=== PATIENT | female | born 1950 | race Caucasian/White ===

== ENCOUNTER 2016-07-30 19:22 | Observation (INO) ==
[2016-07-30] MEDS ORDERED: Ipratropium/Albuterol Neb 3 ML IH ONE (19:51)
[2016-07-30 19:57] LABS: Basophils % 0.2 %; Eosinophils # 0.1 K/mcL (0.0-0.6); Eosinophils % 1.4 %; Hematocrit 44.1 % (35.3-44.9); Immature Granulocytes % 0.1 % (0-4); Lymphocytes # 1.3 K/mcL (0.6-4.6); Lymphocytes % 15.2 %; Mean Corpuscular HGB Conc 31.7 g/dL (31.6-35.5); Mean Corpuscular Volume 94.6 fL (83.0-100.0); Monocytes # 0.6 K/mcL (0.0-1.3); Monocytes % 7.6 %; Neutrophils # 6.3 K/mcL (1.6-8.9); Platelet Count 288 K/mcL (140-400); Red Blood Count 4.66 M/mcL (3.82-4.97); Red Cell Distribution Width 12.9 % (11.5-14.5); Segmented Neutrophils % 75.5 %
--- NOTE | 2016-07-30 19:58 | Emergency Department Note ---
Disposition Clinical Impression: Community acquired pneumonia COPD (chronic obstructive pulmonary disease) Qualifiers: COPD type: chronic bronchitis Chronic bronchitis type: simple Qualified Code(s) : J41.0 - Simple chronic bronchitis Disposition: Admitted As Inpatient General Adult HPI - General Chief complaint: ED Shortness of Breath/Dyspnea Stated complaint: CLIVE Time Seen by Provider: 07/30/16 19:31 Source: patient Limitations: no limitations Nursing Notes Reviewed: Yes Vital Signs Reviewed: Yes - History of Present Illness HPI Narrative: 3 week history of cough with a change in sputum that is now green. She does have a history of COPD. She is chronically on oxygen. She was seen in urgent care today and transferred here. She was given 1 DuoNeb. She has had subjective fevers she is at home. Pain Scale: 0 - Related Data Home Medications Medication Instructions Recorded Confirmed Budesonide/Formoterol 160/4.5 2 puff IH BIDR 05/12/15 07/30/16 [Symbicort 160/4.5] Clopidogrel [Plavix] 75 mg PO DAILY 05/12/15 07/30/16 Cyclobenzaprine [Flexeril] 10 mg PO TID PRN 05/12/15 07/31/16 Furosemide [Lasix] 40 mg PO Q48H 05/12/15 07/30/16 Albuterol Sulfate [Proair Hfa] 2 puff IH BID PRN 07/30/16 07/30/16 Previous Rx's Medication Instructions Recorded Nicotine Patch [Nicoderm] 21 mg TD DAILY PRN #30 patch.[email or web address] 05/14/15 Allergies Allergy/AdvReac Type Severity Reaction Status Date / Time Penicillins Allergy Anaphylaxis Verified 05/12/15 16:09 NSAIDS (Non-Steroidal AdvReac See Verified 05/12/15 16:09 Anti-Inflamma Comments Sulfa (Sulfonamide AdvReac See Verified 05/12/15 16:09 Antibiotics) Comments Past Medical History - Past Medical History Medical history: Reports: COPD, CVA Surgical history: Reports: cholecystectomy, other Psychiatric history: Reports: no psych history - Social History Smoking Status: Current every day smoker Smokeless Tobacco Status: No Alcohol use: Reports: none Drug use: Reports: none Physical Exam - General Limitations: no limitations General appearance: alert, in no apparent distress Course Course Narrative: 66-year-old female with a history of COPD presenting with a 3 week history of change in sputum and cough. She states her sputum is green color. She has had increased shortness of breath over the past week with today being so bad that she sought treatment. She was seen at urgent care given a DuoNeb and an unknown steroid. Patient also reports a sore throat. She does wear oxygen chronically. She has exertional dyspnea after only a few steps. SHe denies any fevers. We will give another to do on an work patient up for COPD exacerbation. This will include a chest x-ray. Patient chest x-ray showed a possible left lower lobe infiltrate. She does have rhonchi in this area. We will treat her for pneumonia at this time admit her. - Reevaluation(s) Reevaluation #1: After 3 DuoNeb's patient she is breathing slightly better. However she did still appears dyspneic. She is still taking. Her lung sounds have a faint wheeze with rhonchi in the left lower lobe. Will admit her for COPD exacerbation and possible left lower lobe pneumonia. Patient is agreeable to this. She received 25 Solu-Medrol while she was at urgent care today. Time: 21:38 - Consultations Consultation #1: Dr Corley accepted Pt in stable condition Time: 21:43 Vital Signs Temperature 0 F L 07/30/16 19:23 Pulse Rate 89 07/30/16 19:23 Respiratory Rate 20 07/30/16 19:23 Blood Pressure 139/57 07/30/16 19:23 O2 Sat by Pulse Oximetry 92 L 07/30/16 19:23 Temperature 97.6 F 07/31/16 03:43 Pulse Rate 70 07/31/16 03:43 Respiratory Rate 18 07/31/16 04:56 Blood Pressure 134/78 07/31/16 03:43 O2 Sat by Pulse Oximetry 97 07/31/16 04:56 Oxygen Delivery Oxygen Delivery Nasal Cannula Medical Decision Making - Lab Data Result diagrams: 07/31/16 00:39 07/31/16 00:39 Lab Results 07/30/16 07/30/16 Range/Units 19:40 19:40 WBC 8.4 (4.3-11.1) K/mcL RBC 4.66 (3.82-4.97) M/mcL Hgb 14.0 (11.5-15.4) g/dL Hct 44.1 (35.3-44.9) % MCV 94.6 (83.0-100.0) fL MCH 30.0 (28.0-33.3) pg MCHC 31.7 (31.6-35.5) g/dL RDW 12.9 (11.5-14.5) % Plt Count 288 (140-400) K/mcL MPV 9.0 L (9.4-12.4) fL Immature Gran % 0.1 (0-4) % Seg Neutrophils % 75.5 % Lymphocytes % 15.2 % Monocytes % 7.6 % Eosinophils % 1.4 % Basophils % 0.2 % Neutrophils # 6.3 (1.6-8.9) K/mcL Lymphocytes # 1.3 (0.6-4.6) K/mcL Monocytes # 0.6 (0.0-1.3) K/mcL Eosinophils # 0.1 (0.0-0.6) K/mcL Basophils # 0.0 (0.0-0.2) K/mcL Sodium 140 (136-145) mEq/L Potassium 4.3 (3.5-4.5) mEq/L Chloride 102 (98-109) mEq/L Carbon Dioxide 28 (19-29) mEq/L BUN 15 (7-20) mg/dL Creatinine 0.71 (0.57-1.11) mg/dL Est GFR ( Amer) > 60 (> 60) Est GFR (Non-Af Amer) > 60 (> 60) BUN/Creatinine Ratio 21 (6-26) Glucose 109 H (70-99) mg/dL Calculated Osmolality 291 (280-300) Calcium 9.2 (8.6-10.8) mg/dL Attestation Statement - Attestation Attestation: I, Diego Ballard MD, personally performed a history and physical exam of the patient and discussed their management with the resident. I reviewed the resident's note and agree with the documented findings, medical decision making , and plan of care. Patient is a 66-year-old female with history of COPD who presents to the emergency department with a complaint of increasing shortness of breath for the past 2 weeks. She was initially seen tonight at urgent care clinic and presented there with an O2 saturation of 85% on her portable oxygen. She received a DuoNeb there was referred here for further evaluation. Patient is on continuous oxygen at home. She is a smoker and continues to smoke about 1 pack per day. Over the past few weeks she has had increased cough with some thick green sputum production. She also admits to intermittent subjective fevers. No chest pain or palpitations. On examination patient is a well-developed well-nourished elderly female in no acute distress. She is alert and oriented 3. There is no cyanosis or diaphoresis. Breath sounds are decreased bilaterally with diffuse tight bilateral inspiratory and expiratory wheezes. Heart regular rate and rhythm with occasional ectopy. Abdomen soft and nontender with normal bowel sounds. EKG shows a normal sinus rhythm with occasional PAC. No voltage in precordial leads. No significant change from prior EKG dated 05/12/15. Labs reviewed and unremarkable. Chest x-ray showed linear opacity in left base likely atelectasis but cannot exclude pneumonia. The hospitalist, Dr. Hills, was consulted and accepted patient for admission for exacerbation of COPD.
[2016-07-30 20:10] LABS: BUN/Creatinine Ratio 21 (6-26); Blood Urea Nitrogen 15 mg/dL (7-20); Calcium 9.2 mg/dL (8.6-10.8); Carbon Dioxide 28 mEq/L (19-29); Chloride 102 mEq/L (98-109); Glucose 109 mg/dL (70-99); Osmolality,Calculated 291 (280-300); Potassium 4.3 mEq/L (3.5-4.5); Sodium 140 mEq/L (136-145); eGFR For African Americans > 60 (> 60); eGFR For Non-African Americans > 60 (> 60)
[2016-07-30] MEDS ORDERED: Azithromycin 500 MG in D5% in Water 250 ML IVPB ONE ×2 (21:34→21:37)
--- NOTE | 2016-07-30 22:56 | Internal Med History&Physical ---
Date of Encounter: 07/31/16 Time of Encounter: 22:30 Assessment and Plan (1) Acute and chronic respiratory failure with hypoxia Current visit: Yes Status: Acute Likely secondary to COPD exacerbation. Less likely pneumonia. Afebrile, no leukocytosis. CXR showed linear opacity, likely atelectasis, possible superimposed pneumonia. Noted green sputum, will order culture and gram stain. Patient received Azithromycin and Rocephin in the ED. Currently stable on 2 lpm O2, titrate as needed. CPAP at night. Continue duoneb QIAD, Albuterol Q4H Continue symbicort Continue IV steroids 40mg Q8H. Start Levaquin 750mg IV daily for 5 days. (2) Acute exacerbation of chronic obstructive airways disease Current visit: No Status: Acute See above plan. (3) Chest pain Current visit: Yes Status: Acute Nonanginal chest pain. Likely pleuritic secondary to COPD exacerbation. Fleeting left substernal pain. No precepitation or relieving factors. Qualifiers: Chest pain type: unspecified Qualified Code(s): R07.9 - Chest pain, unspecified (4) Upper respiratory infection Current visit: Yes Status: Acute Likely viral URI, afebrile, no leukocytosis. Patient states burning throat, lymph nodes tender to palpation. Not affect PO intake. Continue to observe. Qualifiers: URI type: unspecified URI Qualified Code(s): J06.9 - Acute upper respiratory infection, unspecified (5) GERD (gastroesophageal reflux disease) Current visit: Yes Status: Chronic Patient states frequent heartburn. Will start pepcid. Qualifiers: Esophagitis presence: esophagitis presence not specified Qualified Code(s) : K21.9 - Gastro-esophageal reflux disease without esophagitis (6) CHF (congestive heart failure) Current visit: No Status: Suspected Reportedly. Patient states she had an echo 3-4 years ago. Previous note mentions Echo on 12/04/11 showing EF 65% with no diastolic dysfunction. Will monitor for signs of acute CHF. Qualifiers: Congestive heart failure type: unspecified congestive heart failure type Congestive heart failure chronicity: chronic Qualified Code(s): I50.9 - Heart failure, unspecified (7) Hx-TIA (transient ischemic attack) Current visit: No Status: Acute TIA in 2011. Unable to tolerate ASA. Continue Plavix. Mild persistent R sided weakness. (8) Obstructive sleep apnea Current visit: No Status: Chronic Currently uses CPAP machine nightly with setting of 4mmHg and 2 lpm O2. (9) Chronic back pain Current visit: No Status: Chronic Continue home flexeril. Qualifiers: Back pain location: back pain in unspecified location Back pain laterality : unspecified Qualified Code(s): M54.9 - Dorsalgia, unspecified; G89.29 - Other chronic pain (10) Tobacco abuse Current visit: No Status: Chronic Nicoderm patch. Tobacco cessation counseling. (11) DVT prophylaxis Current visit: No Status: Acute Heparin SQ Internal Medicine - H&P: HPI Chief complaint: dyspnea Admitted From: Emergency Dept Plans for Post Hospital Care: Home History of present illness: Ms. Garcia is a 66 year old female that presented to the ED from urgentcare for shortness of breath for the past week. Pertinent history of COPD, on 2-3L of O2 at home, CPAP for MARIELY, GERD, CVA, CHF, chronic diarrhea. Patient noted worsening shortness of breath today with occasional fleeting left substernal chest pain, pain not associated with inspirations or cough. Patient does note 2 weeks of sputum production that started as clear and is now green. Patient states she has been fatigued and weak for the past week. Patient admits to smoking approx 1ppd, stated closer to 2ppd. Patient found to have a O2 saturation of 85% at urgentcare, currently 92% on 2 lpm via NC. Patient also notes neck pain for the past couple weeks and a sorethroat, however this has not affect PO intake. Past Med Surg Social Fam HX - Past Medical History Medical history: CHF, COPD, CVA, other (magular degeneration) Psychiatric history: no psych history - Past Surgical History Surgical History: cholecystectomy, other - Social History Smoking Status: Current every day smoker Smokeless Tobacco Status: No Alcohol use: none Drug use: none - Family History Mother Living Status: Hx Family Cardiac Disorders: Yes Hx Family Endocrine Disorder: Yes Father Hx Family Cardiac Disorders: Yes (CHF, HTN) Hx Family GI Disorders: Yes (diverticulitis) Hx Family Endocrine Disorder: Yes (DM) Hx Family Musculoskeletal Disorders: Yes (arthritis) Internal Medicine - H&P: Meds Budesonide/Formoterol 160/4.5 [Symbicort 160/4.5] 2 puff IH BIDR 05/12/15 [ History] Clopidogrel [Plavix] 75 mg PO DAILY 05/12/15 [History] Cyclobenzaprine [Flexeril] 10 mg PO TID PRN 05/12/15 [History] Furosemide [Lasix] 40 mg PO Q48H 05/12/15 [History] Nicotine Patch [Nicoderm] 21 mg TD DAILY PRN #30 patch.td24 05/14/15 [Rx] Albuterol Sulfate [Proair Hfa] 2 puff IH BID PRN 07/30/16 [History] Allergies Penicillins Allergy (Verified 05/12/15 16:09) Anaphylaxis NSAIDS (Non-Steroidal Anti-Inflamma Adverse Reaction (Verified 05/12/15 16:09) See Comments Sick Sulfa (Sulfonamide Antibiotics) Adverse Reaction (Verified 05/12/15 16:09) See Comments "deathly sick" All Systems PM: A 10-system review of systems was performed and is negative for pertinent findings except as documented above in the HPI. - Constitutional Constitutional: chills, fatigue, no fever(s) (no documented fevers) - EENT Eyes: blurry vision (hx of macular degeneration), no change in vision Nose, mouth and throat: neck pain, sore throat, no dysphagia, no tongue swelling - Cardiovascular Cardiovascular ROS IM: chest pain, dyspnea, dyspnea on exertion, lightheadedness , no syncope - Respiratory Respiratory: cough, dyspnea, dyspnea on exertion, excessive phlegm production, change in phlegm color - Gastrointestinal Gastrointestinal: diarrhea, heartburn, no abdominal pain, no dysphagia, no nausea, no vomiting - Genitourinary Genitourinary: no dysuria - Musculoskeletal Musculoskeletal ROS IM: neck pain (bilateral tenderness) - Neurological Neurological ROS: dizziness, weakness, no confusion, no focal weakness - Endocrine Endocrine IM: cold intolerance, heat intolerance - Constitutional Vitals: Temp Pulse Resp BP Pulse Ox 0 F L 82 18 112/56 92 L 07/30/16 21:07 07/30/16 22:35 07/30/16 22:35 07/30/16 22:35 07/30/16 22:35 General appearance: Present: cooperative, A&O X 3, pleasant, no acute distress, answers questions appropriately - Head Head exam: Present: atraumatic, normocephalic - Eye Eye exam: Present: EOMI, conjuntiva pink, sclera anicteric - ENT ENT exam: Present: mucous membranes moist, normal oropharynx (no exudate or erythema noted) - Neck Neck exam general surgery: Present: full ROM, tenderness (tender to palpation along anteriolateral cervical chains, unable to fully palpate for lymphadenopathy due to tenderness.), supple, trachea midline - Respiratory Respiratory exam: Present: chest wall tenderness (sternal tenderness about the level of the 4th rib.), decreased breath sounds, wheezes (greater on the L>R). Absent: accessory muscle use, rales, rhonchi - Cardiovascular Cardiovascular exam: Present: RRR, +S1, +S2. Absent: diastolic murmur, gallop, rubs, systolic murmur - GI/Abdominal GI/Abdominal exam: Present: normal bowel sounds, soft, no peritoneal signs. Absent: distended, tenderness - Extremities Exam Extremities exam: Present: warm. Absent: calf tenderness, cyanotic, pedal edema , tenderness - Neurological Exam Neurological exam: Present: alert, oriented X3, no focal deficits. Absent: facial droop, speech deficit Additional comments: Right UE and LE strength 4+/5, Left sided UE and LE 5+/5. - Skin Skin exam: Present: dry, intact Internal Med - H&P Results - Labs CBC & Chem 7: 07/31/16 00:39 07/31/16 00:39 Labs: Short CBC 07/30/16 Range/Units 19:40 WBC 8.4 (4.3-11.1) K/mcL Hgb 14.0 (11.5-15.4) g/dL Hct 44.1 (35.3-44.9) % Plt Count 288 (140-400) K/mcL Neutrophils # 6.3 (1.6-8.9) K/mcL BMP 07/30/16 19:40 Sodium 140 Potassium 4.3 Chloride 102 Carbon Dioxide 28 BUN 15 Creatinine 0.71 Glucose 109 H Calcium 9.2 - Impressions ITS Impressions Chest X-Ray 07/30/16 19:50 IMPRESSION: Minimal linear opacity in the left lung base likely reflects atelectasis. Superimposed pneumonia considered less likely clear D/ / Simone Valdez MD / Simone Valdez MD Interpreting Provider: Simone Valdez MD
[2016-07-31] MEDS ORDERED: Acetaminophen 325 MG TABLET PO PRN (00:05)
[2016-07-31] MEDS ORDERED: Ondansetron ODT 4 MG TAB.RAPDIS SL PRN (00:05)
[2016-07-31] MEDS ORDERED: Nicotine 21 MG PATCH.TD24 TD PRN (00:17)
[2016-07-31] MEDS ORDERED: Ipratropium/Albuterol Neb 3 ML IH PRN (00:20)
[2016-07-31 00:59] LABS: Basophils % 0.1 %; Hematocrit 42.2 % (35.3-44.9); Hemoglobin 13.2 g/dL (11.5-15.4); Immature Granulocytes % 0.4 % (0-4); Lymphocytes # 0.4 K/mcL (0.6-4.6); Lymphocytes % 3.6 %; Mean Corpuscular HGB Conc 31.3 g/dL (31.6-35.5); Mean Corpuscular Hemoglobin 29.9 pg (28.0-33.3); Mean Corpuscular Volume 95.5 fL (83.0-100.0); Mean Platelet Volume 9.1 fL (9.4-12.4); Monocytes % 0.3 %; Platelet Count 269 K/mcL (140-400); Red Blood Count 4.42 M/mcL (3.82-4.97); Red Cell Distribution Width 12.8 % (11.5-14.5); Segmented Neutrophils % 95.6 %
[2016-07-31 01:04] LABS: BUN/Creatinine Ratio 19 (6-26); Blood Urea Nitrogen 15 mg/dL (7-20); Calcium 8.8 mg/dL (8.6-10.8); Carbon Dioxide 24 mEq/L (19-29); Chloride 101 mEq/L (98-109); Glucose 274 mg/dL (70-99); Osmolality,Calculated 297 (280-300); Potassium 4.2 mEq/L (3.5-4.5); Sodium 138 mEq/L (136-145); eGFR For African Americans > 60 (> 60); eGFR For Non-African Americans > 60 (> 60)
[2016-07-31] MEDS ORDERED: Albuterol 2.5 MG/3 ML NEBULIZER IH PRN (02:31)
[2016-07-31] MEDS: Ipratropium/Albuterol Neb 3 ML IH SCH ×4 (04:56→22:18)
[2016-07-31] MEDS: *HR* Heparin 5,000 UNIT/ML VIAL SQ SCH ×2 (05:43→17:54)
[2016-07-31] MEDS ORDERED: Levofloxacin 750 MG/150 ML 750 MG/150 ML BAG IVPB SCH (09:00)
[2016-07-31] MEDS: MethylPREDNISolone 40 MG/ML VIAL IVP SCH ×2 (09:44→17:54)
[2016-07-31] MEDS: Famotidine 20 MG TABLET PO SCH ×2 (09:44→20:25)
[2016-07-31] MEDS: Budesonide/Formoterol 160/4.5 MDI IH SCH ×2 (11:37→22:18)
--- NOTE | 2016-07-31 14:24 | Internal Med Progress Note ---
Date of Encounter: 07/31/16 Time of Encounter: 07:45 - Assessment and plan (1) Acute and chronic respiratory failure with hypoxia Current Visit: Yes Status: Acute Assessment and plan: Improving. Continue current management with O2 supplementation, IV steroids, antibiotics. (2) Chest pain Current Visit: Yes Status: Acute Assessment and plan: Improved. Pleuritic in nature. Negative troponins. Qualifiers: Chest pain type: pleurodynia Qualified Code(s): R07.81 - Pleurodynia (3) Upper respiratory infection Current Visit: Yes Status: Acute Assessment and plan: Receiving levofloxacin. Qualifiers: URI type: unspecified URI Qualified Code(s): J06.9 - Acute upper respiratory infection, unspecified (4) Acute exacerbation of chronic obstructive airways disease Current Visit: No Status: Acute Assessment and plan: Management as above with IV steroids, O2 supplementation and nebs. (5) CHF (congestive heart failure) Current Visit: No Status: Suspected Assessment and plan: Patient does not have any signs of acute heart failure. Qualifiers: Congestive heart failure type: unspecified congestive heart failure type Congestive heart failure chronicity: chronic Qualified Code(s): I50.9 - Heart failure, unspecified (6) DVT prophylaxis Current Visit: No Status: Acute Assessment and plan: On subcutaneous heparin - Constitutional Vitals: Temp Pulse Resp BP Pulse Ox 97.2 F L 68 20 102/63 90 L 07/31/16 11:02 07/31/16 11:02 07/31/16 11:38 07/31/16 11:02 07/31/16 11:38 General appearance: Present: cooperative, A&O X 3, pleasant, no acute distress, answers questions appropriately - Respiratory Respiratory exam: Present: decreased breath sounds (diminished bilaterally), prolonged expiratory phase, wheezes. Absent: accessory muscle use, rales, rhonchi - Cardiovascular Cardiovascular exam: Present: RRR, +S1, +S2. Absent: diastolic murmur, gallop, rubs, systolic murmur - GI/Abdominal GI/Abdominal exam: Present: normal bowel sounds, soft, no peritoneal signs. Absent: distended, tenderness - Extremities Exam Extremities exam: Present: warm, radial pulses palpable and symetrical. Absent : calf tenderness, cyanotic, pedal edema Internal Medicine: Result - Labs CBC & Chem 7: 07/31/16 00:39 07/31/16 00:39 Labs: Short CBC 07/31/16 Range/Units 00:39 WBC 10.5 (4.3-11.1) K/mcL Hgb 13.2 (11.5-15.4) g/dL Hct 42.2 (35.3-44.9) % Plt Count 269 (140-400) K/mcL Neutrophils # 10.0 H (1.6-8.9) K/mcL BMP 07/31/16 00:39 Sodium 138 Potassium 4.2 Chloride 101 Carbon Dioxide 24 BUN 15 Creatinine 0.78 Glucose 274 H Calcium 8.8 Cardiac Enzymes 07/31/16 Range/Units 00:39 Troponin I 0.01 (0-0.03) ng/mL Consult Discharge Plan - Plan Referrals: Kailey Alvarez MD [Primary Care Provider] - - Attending Attestation This document has been at least partially created by [employer] recognition technology by Dr. Brown. Errors in grammar, wording or other phrases may exist. If errors are found after the documentation is signed, they will be addressed individually in the addendum section of this document when appropriate. Medical Decision Making - MDM Narrative Medical decision making narrative: Moderate risk for complications - Medical Records Medical records reviewed: Yes I reviewed the patient's medical records. - Lab Data Lab results reviewed: Yes I reviewed the patient's lab results. Result diagrams: 07/31/16 00:39 07/31/16 00:39 Lab Results 07/31/16 07/31/16 07/31/16 Range/Units 00:39 00:39 00:39 WBC 10.5 (4.3-11.1) K/mcL RBC 4.42 (3.82-4.97) M/mcL Hgb 13.2 (11.5-15.4) g/dL Hct 42.2 (35.3-44.9) % MCV 95.5 (83.0-100.0) fL MCH 29.9 (28.0-33.3) pg MCHC 31.3 L (31.6-35.5) g/dL RDW 12.8 (11.5-14.5) % Plt Count 269 (140-400) K/mcL MPV 9.1 L (9.4-12.4) fL Immature Gran % 0.4 (0-4) % Seg Neutrophils % 95.6 % Lymphocytes % 3.6 % Monocytes % 0.3 % Eosinophils % 0.0 % Basophils % 0.1 % Neutrophils # 10.0 H (1.6-8.9) K/mcL Lymphocytes # 0.4 L (0.6-4.6) K/mcL Monocytes # 0.0 (0.0-1.3) K/mcL Eosinophils # 0.0 (0.0-0.6) K/mcL Basophils # 0.0 (0.0-0.2) K/mcL Sodium 138 (136-145) mEq/L Potassium 4.2 (3.5-4.5) mEq/L Chloride 101 (98-109) mEq/L Carbon Dioxide 24 (19-29) mEq/L BUN 15 (7-20) mg/dL Creatinine 0.78 (0.57-1.11) mg/dL Est GFR ( Amer) > 60 (> 60) Est GFR (Non-Af Amer) > 60 (> 60) BUN/Creatinine Ratio 19 (6-26) Glucose 274 H (70-99) mg/dL Calculated Osmolality 297 (280-300) Calcium 8.8 (8.6-10.8) mg/dL Troponin I 0.01 (0-0.03) ng/mL
[2016-08-01] MEDS: MethylPREDNISolone 40 MG/ML VIAL IVP SCH (01:03)
[2016-08-01] MEDS: Ipratropium/Albuterol Neb 3 ML IH SCH (04:28)
[2016-08-01] MEDS: *HR* Heparin 5,000 UNIT/ML VIAL SQ SCH (04:55)
[2016-08-01 06:52] VITALS: BP 111/69
--- NOTE | 2016-08-01 08:36 | Discharge Summary ---
Date of Encounter: 08/01/16 Time of Encounter: 08:32 - Discharge Diagnosis (1) Acute and chronic respiratory failure with hypoxia Priority: Primary Status: Acute (2) Chest pain Priority: Secondary Status: Acute Qualifiers: Chest pain type: pleurodynia Qualified Code(s): R07.81 - Pleurodynia (3) Upper respiratory infection Priority: Secondary Status: Acute Qualifiers: URI type: unspecified URI Qualified Code(s): J06.9 - Acute upper respiratory infection, unspecified (4) Acute exacerbation of chronic obstructive airways disease Priority: Secondary Status: Acute (5) CHF (congestive heart failure) Priority: Secondary Status: Suspected Qualifiers: Congestive heart failure type: unspecified congestive heart failure type Congestive heart failure chronicity: chronic Qualified Code(s): I50.9 - Heart failure, unspecified (6) DVT prophylaxis Priority: Secondary Status: Acute - Discharge Medications Prescriptions: Levofloxacin 750 mg PO DAILY #10 tablet PredniSONE 10 mg PO DAILY 8 Days Home Medications: Budesonide/Formoterol 160/4.5 [Symbicort 160/4.5] 2 puff IH BIDR 05/12/15 [ History] Clopidogrel [Plavix] 75 mg PO DAILY 05/12/15 [History] Cyclobenzaprine [Flexeril] 10 mg PO TID PRN 05/12/15 [History] Furosemide [Lasix] 40 mg PO BID PRN 05/12/15 [History] Albuterol Sulfate [Proair Hfa] 2 puff IH BID PRN 07/30/16 [History] Gabapentin [Neurontin] 300 mg PO TID 07/31/16 [History] Levofloxacin 750 mg PO DAILY #10 tablet 08/01/16 [Rx] PredniSONE 10 mg PO DAILY 8 Days 08/01/16 [Rx] Allergies/Adverse Reactions: Allergies Penicillins Allergy (Verified 05/12/15 16:09) Anaphylaxis metronidazole [From Flagyl] Adverse Reaction (Verified 07/31/16 12:19) Vomiting naproxen Adverse Reaction (Verified 07/31/16 12:19) Vomiting NSAIDS (Non-Steroidal Anti-Inflamma Adverse Reaction (Verified 07/31/16 12:19) Vomiting roflumilast [From Daliresp] Adverse Reaction (Verified 07/31/16 12:19) Vomiting Sulfa (Sulfonamide Antibiotics) Adverse Reaction (Verified 07/31/16 12:19) Vomiting Date of admission: 07/30/16 22:34 Primary care physician: Kailey Alvarez Discharging clinician: Winston Brown Anticipated date of discharge: 08/01/16 - Patient Status Disposition: Home, Self-Care Condition: Good Functional capacity at discharge: independent ambulation Overall status at discharge: patient is progressing back to baseline - Discharge Instructions Instructions: Chronic Obstructive Pulmonary Disease (DC) Follow Up With: Kailey Alvarez MD [Primary Care Provider] - (In one week) - Diet and Activity Activity: increase activity as tolerated, wear oxygen at all times Diet: diabetic diet, low fat, low cholesterol, low salt diet Hospital course: Ms. Garcia is a 66 year old female with history of chronic respiratory failure, coronary artery disease, diabetes mellitus type 2 and COPD was observed in the hospital after presenting with shortness of breath. She was treated with acute on chronic respiratory failure and acute exacerbation of COPD. She received intravenous steroids, antibiotics. She also received nebulizer treatments with bronchodilators. She did have some pleuritic chest pain related to coughing. Her troponins were negative. She has clinically improved and is now feeling much better and well enough to go home. She is clinically stable for discharge and will be discharged on a steroid taper antibiotic regimen. She will follow- up with her primary care provider for further management of her chronic medical conditions. - Time Spent with Patient Total time spent providing and/or coordinating discharge services: Less than 30 minutes (25 min) - Constitutional Vitals: Temp Pulse Resp BP Pulse Ox 97.9 F 94 16 111/69 96 08/01/16 06:48 08/01/16 06:48 08/01/16 06:48 08/01/16 06:48 08/01/16 06:48 General appearance: Present: cooperative, A&O X 3, pleasant, no acute distress, answers questions appropriately - Respiratory Respiratory exam: Present: decreased breath sounds (at bases), prolonged expiratory phase. Absent: accessory muscle use, rales, rhonchi, wheezes - GI/Abdominal GI/Abdominal exam: Present: normal bowel sounds, soft, no peritoneal signs. Absent: distended, tenderness - Extremities Exam Extremities exam: Present: warm, radial pulses palpable and symetrical. Absent : calf tenderness, cyanotic, pedal edema - Attending Attestation This document has been at least partially created by [employer] recognition technology by Dr. Brown. Errors in grammar, wording or other phrases may exist. If errors are found after the documentation is signed, they will be addressed individually in the addendum section of this document when appropriate.
--- NOTE | 2016-08-01 13:40 | Electrocardiograph Report ---
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
== END 2016-08-01 10:16 | disposition home or self-care (01) ==
LOC: EMEROO 19:22 → 3BNU 19:22 → SUATTDRO 22:34 → 3BNU 22:56
PROVIDERS: ADMIT Internal Medicine; ATTEND Internal Medicine

== ENCOUNTER 2017-10-02 12:21 | Observation (INO) ==
[2017-10-02] MEDS ORDERED: methylPREDNISolone 125 MG/2 ML VIAL IVP ONE (12:29)
[2017-10-02] MEDS ORDERED: Ipratropium/Albuterol Neb 3 ML IH ONE (12:29)
[2017-10-02] MEDS ORDERED: Aspirin 81 MG TAB.CHEW PO ONE (12:30)
--- NOTE | 2017-10-02 12:34 | Emergency Department Note ---
Disposition Clinical Impression: Chest pain Qualifiers: Chest pain type: unspecified Qualified Code(s): R07.9 - Chest pain, unspecified COPD (chronic obstructive pulmonary disease) Qualifiers: COPD type: unspecified COPD Qualified Code(s): J44.9 - Chronic obstructive pulmonary disease, unspecified Disposition: Admitted As Inpatient Condition: Fair Time of Disposition: 14:04 General Adult HPI - General Chief complaint: ED Chest Pain Stated complaint: chest pain Time Seen by Provider: 10/02/17 12:25 Source: patient Mode of arrival: ambulatory Limitations: no limitations Nursing Notes Reviewed: Yes Vital Signs Reviewed: Yes - History of Present Illness HPI Narrative: 67 year old female with a history of COPD, CHF presents for evaluation of cough congestion and chest pain. Patient states interim onsets but over the past 2 weeks but is worsened acutely. Patient reports intermittent chest pressure over this timeframe. States that it comes and goes. No aggravating or alleviating symptoms. Patient denies history of heart attacks. Patient reports a cough. No notable fevers. Patient does states she is feeling short of breath. Patient was seen by her primary care doctor for further cardiac evaluation. Patient does have baseline oxygen requiring 2 L. Pain Scale: 7 - Related Data Home Medications Medication Instructions Recorded Confirmed Budesonide/Formoterol 160/4.5 2 puff IH BIDR 05/12/15 10/02/17 [Symbicort 160/4.5] Clopidogrel [Plavix] 75 mg PO DAILY 05/12/15 10/02/17 Cyclobenzaprine [Flexeril] 10 mg PO TID PRN 05/12/15 10/02/17 Furosemide [Lasix] 40 mg PO BID PRN 05/12/15 10/02/17 Albuterol Sulfate [Proair Hfa] 2 puff IH BID PRN 07/30/16 10/02/17 Gabapentin [Neurontin] 300 mg PO TID 07/31/16 10/02/17 Allergies Allergy/AdvReac Type Severity Reaction Status Date / Time Penicillins Allergy Anaphylaxis Verified 05/12/15 16:09 metronidazole [From Flagyl] AdvReac Vomiting Verified 07/31/16 12:19 naproxen AdvReac Vomiting Verified 07/31/16 12:19 NSAIDS (Non-Steroidal AdvReac Vomiting Verified 07/31/16 12:19 Anti-Inflamma roflumilast [From Daliresp] AdvReac Vomiting Verified 07/31/16 12:19 Sulfa (Sulfonamide AdvReac Vomiting Verified 07/31/16 12:19 Antibiotics) All systems ED: reviewed and negative except as stated. Constitutional: Denies: fever Cardiovascular: Reports: chest pain Respiratory: Reports: cough, dyspnea Gastrointestinal: Denies: abdominal pain, nausea, vomiting Past Medical History - Past Medical History Source: patient Medical history: Reports: COPD, CVA Surgical history: Reports: cholecystectomy, other Psychiatric history: Reports: no psych history - Social History Smoking Status: Current every day smoker Smokeless Tobacco Status: No Alcohol use: Reports: none Drug use: Reports: none Physical Exam - General Limitations: no limitations General appearance: alert, in no apparent distress - Head Head exam: atraumatic, normocephalic, normal inspection - Eye Eye exam: Present: normal appearance - ENT ENT exam: normal exam - Neck Neck exam: Present: normal inspection - Chest Chest inspection: Present: normal inspection, symmetric chest wall rise - Respiratory Respiratory exam: Present: wheezes (Prolonged inspiratory expiratory wheezes throughout), accessory muscle use, prolonged expiratory phase - Cardiovascular Cardiovascular exam: Present: regular rate, normal rhythm. Absent: systolic murmur - Abdominal Exam Abdominal exam: Present: soft - Extremities Exam Extremities exam: Present: normal inspection - Expanded Lower Extremity Exam Neurovascular/Tendon exam: Present: normal capillary refill - Neurological Exam Neurological exam: Present: alert - Skin Skin exam: Present: warm, dry, intact, normal color Course - Reevaluation(s) Reevaluation #1: Patient is resting comfortably. Time: 15:39 Vital Signs Temperature 98.2 F 10/02/17 12:24 Pulse Rate 67 10/02/17 12:24 Respiratory Rate 16 10/02/17 12:24 Blood Pressure 138/79 10/02/17 12:24 O2 Sat by Pulse Oximetry 93 10/02/17 12:24 Temperature 98.2 F 10/02/17 12:24 Pulse Rate 79 10/02/17 15:09 Respiratory Rate 17 10/02/17 15:09 Blood Pressure 138/77 10/02/17 15:09 O2 Sat by Pulse Oximetry 97 10/02/17 15:09 Oxygen Delivery Oxygen Delivery Nasal Cannula Medical Decision Making - MDM Narrative Medical decision making narrative: Patient presents with shortness of breath and chest pain. Patient has have a history of COPD. Patient's chest pain does sound anginal in nature. Patient's breathing did appear labored initially. Patient was treated with triple nebs as well as steroids. Patient has had a change in sputum production and did prompt antibiotic coverage for likely COPD exacerbation. However it is difficult to discern whether her breathing is related to her chest pain. Patient has not had a formal cardiopulmonary evaluation. Patient will be admitted for chest pain as well as a COPD exacerbation. Patient had a negative influenza screen. Patient chest pain has improved with serial nitroglycerin. - Lab Data Lab results reviewed: Yes I reviewed the patient's lab results. Result diagrams: 10/02/17 13:05 10/02/17 13:05 Lab Results 10/02/17 10/02/17 10/02/17 Range/Units 13:05 13:05 13:05 WBC 7.5 (4.3-11.1) K/mcL RBC 4.45 (3.82-4.97) M/mcL Hgb 13.5 (11.5-15.4) g/dL Hct 42.1 (35.3-44.9) % MCV 94.6 (83.0-100.0) fL MCH 30.3 (28.0-33.3) pg MCHC 32.1 (31.6-35.5) g/dL RDW 12.8 (11.5-14.5) % Plt Count 211 (140-400) K/mcL MPV 8.9 L (9.4-12.4) fL Immature Gran % 0.4 (0-4) % Seg Neutrophils % 68.8 % Lymphocytes % 22.5 % Monocytes % 6.6 % Eosinophils % 1.3 % Basophils % 0.4 % Neutrophils # 5.2 (1.6-8.9) K/mcL Lymphocytes # 1.7 (0.6-4.6) K/mcL Monocytes # 0.5 (0.0-1.3) K/mcL Eosinophils # 0.1 (0.0-0.6) K/mcL Basophils # 0.0 (0.0-0.2) K/mcL D-Dimer (0-500) ng/mLFEU VBG pH (7.32-7.42) pH Units VBG pCO2 (41-51) mmHg VBG pO2 (25-50) mmHg VBG HCO3 (21-27) mEq/L Sodium 139 (136-145) mEq/L Potassium 3.8 (3.5-5.1) mEq/L Chloride 104 (98-107) mEq/L Carbon Dioxide 27 (23-29) mEq/L BUN 15 (8-23) mg/dL Creatinine 0.51 L (0.60-1.20) mg/dL Est GFR ( Amer) > 60 (> 60) Est GFR (Non-Af Amer) > 60 (> 60) BUN/Creatinine Ratio 29 H (6-26) Glucose 101 (70-105) mg/dL Calculated Osmolality 289 (280-300) Lactic Acid 0.6 (0.5-2.2) mmol/L Calcium 8.8 (8.6-10.3) mg/dL Troponin I < 0.03 (< 0.04) ng/mL B-Natriuretic Peptide (Less than 100) pg/mL 10/02/17 10/02/17 10/02/17 Range/Units 13:05 13:08 13:26 WBC (4.3-11.1) K/mcL RBC (3.82-4.97) M/mcL Hgb (11.5-15.4) g/dL Hct (35.3-44.9) % MCV (83.0-100.0) fL MCH (28.0-33.3) pg MCHC (31.6-35.5) g/dL RDW (11.5-14.5) % Plt Count (140-400) K/mcL MPV (9.4-12.4) fL Immature Gran % (0-4) % Seg Neutrophils % % Lymphocytes % % Monocytes % % Eosinophils % % Basophils % % Neutrophils # (1.6-8.9) K/mcL Lymphocytes # (0.6-4.6) K/mcL Monocytes # (0.0-1.3) K/mcL Eosinophils # (0.0-0.6) K/mcL Basophils # (0.0-0.2) K/mcL D-Dimer 287 (0-500) ng/mLFEU VBG pH 7.41 (7.32-7.42) pH Units VBG pCO2 48 (41-51) mmHg VBG pO2 134 H (25-50) mmHg VBG HCO3 30 H (21-27) mEq/L Sodium (136-145) mEq/L Potassium (3.5-5.1) mEq/L Chloride (98-107) mEq/L Carbon Dioxide (23-29) mEq/L BUN (8-23) mg/dL Creatinine (0.60-1.20) mg/dL Est GFR ( Amer) (> 60) Est GFR (Non-Af Amer) (> 60) BUN/Creatinine Ratio (6-26) Glucose (70-105) mg/dL Calculated Osmolality (280-300) Lactic Acid (0.5-2.2) mmol/L Calcium (8.6-10.3) mg/dL Troponin I (< 0.04) ng/mL B-Natriuretic Peptide 46 (Less than 100) pg/mL 10/02/17 Range/Units 13:43 WBC (4.3-11.1) K/mcL RBC (3.82-4.97) M/mcL Hgb (11.5-15.4) g/dL Hct (35.3-44.9) % MCV (83.0-100.0) fL MCH (28.0-33.3) pg MCHC (31.6-35.5) g/dL RDW (11.5-14.5) % Plt Count (140-400) K/mcL MPV (9.4-12.4) fL Immature Gran % (0-4) % Seg Neutrophils % % Lymphocytes % % Monocytes % % Eosinophils % % Basophils % % Neutrophils # (1.6-8.9) K/mcL Lymphocytes # (0.6-4.6) K/mcL Monocytes # (0.0-1.3) K/mcL Eosinophils # (0.0-0.6) K/mcL Basophils # (0.0-0.2) K/mcL D-Dimer (0-500) ng/mLFEU VBG pH 7.47 H (7.32-7.42) pH Units VBG pCO2 37 L (41-51) mmHg VBG pO2 219 H (25-50) mmHg VBG HCO3 26 (21-27) mEq/L Sodium (136-145) mEq/L Potassium (3.5-5.1) mEq/L Chloride (98-107) mEq/L Carbon Dioxide (23-29) mEq/L BUN (8-23) mg/dL Creatinine (0.60-1.20) mg/dL Est GFR ( Amer) (> 60) Est GFR (Non-Af Amer) (> 60) BUN/Creatinine Ratio (6-26) Glucose (70-105) mg/dL Calculated Osmolality (280-300) Lactic Acid (0.5-2.2) mmol/L Calcium (8.6-10.3) mg/dL Troponin I (< 0.04) ng/mL B-Natriuretic Peptide (Less than 100) pg/mL - Radiology Data Radiology results reviewed: Yes I reviewed the patient's radiology results. Chest X-Ray 10/02/17 12:29 IMPRESSION: No evidence of acute cardiopulmonary disease. D/ / Carlos A Richardson MD / Carlos A Richardson MD Interpreting Provider: Carlos A Richardson MD - EKG Data EKG #1 EKG attestation: Yes I reviewed and interpreted this EKG. EKG shows normal: sinus rhythm Rate: normal Rhythm: NSR [place]/QRS: normal T wave inversions noted in: aVR Interpretation: no acute changes Attestation Statement - Attestation Attestation: I examined this patient and my medical decision-making was reviewed with the Resident Physician. I agree with the documented findings, disposition and treatment plan as described except to the extent set forth below. Patient to ED complaining of chest pain. Patient states her symptoms started 2 weeks ago with a cough. He was originally productive of green sputum but is now dry. She has pain across her chest when she coughs. She went to see her PCP and was sent here for eval. On examination she has diffuse tenderness over the anterior chest wall. Lungs with expiratory wheezing. Plan. Cardiac workup.
[2017-10-02 13:20] LABS: Basophils % 0.4 %; Eosinophils # 0.1 K/mcL (0.0-0.6); Eosinophils % 1.3 %; Hematocrit 42.1 % (35.3-44.9); Hemoglobin 13.5 g/dL (11.5-15.4); Immature Granulocytes % 0.4 % (0-4); Lymphocytes # 1.7 K/mcL (0.6-4.6); Lymphocytes % 22.5 %; Mean Corpuscular HGB Conc 32.1 g/dL (31.6-35.5); Mean Corpuscular Hemoglobin 30.3 pg (28.0-33.3); Mean Corpuscular Volume 94.6 fL (83.0-100.0); Mean Platelet Volume 8.9 fL (9.4-12.4); Monocytes # 0.5 K/mcL (0.0-1.3); Monocytes % 6.6 %; Neutrophils # 5.2 K/mcL (1.6-8.9); Platelet Count 211 K/mcL (140-400); Red Blood Count 4.45 M/mcL (3.82-4.97); Red Cell Distribution Width 12.8 % (11.5-14.5); Segmented Neutrophils % 68.8 %
[2017-10-02 13:31] LABS: VBG HCO3 30 mEq/L (21-27); VBG PCO2 48 mmHg (41-51); VBG PH 7.41 pH Units (7.32-7.42); VBG PO2 134 mmHg (25-50)
[2017-10-02] MEDS: Nitroglycerin 0.4 MG TAB.SUBL SL PRN ×3 (13:41→14:05)
[2017-10-02 13:45] LABS: VBG HCO3 26 mEq/L (21-27); VBG PCO2 37 mmHg (41-51); VBG PH 7.47 pH Units (7.32-7.42); VBG PO2 219 mmHg (25-50)
[2017-10-02 13:48] LABS: BUN/Creatinine Ratio 29 (6-26); Blood Urea Nitrogen 15 mg/dL (8-23); Calcium 8.8 mg/dL (8.6-10.3); Carbon Dioxide 27 mEq/L (23-29); Chloride 104 mEq/L (98-107); Glucose 101 mg/dL (70-105); Osmolality,Calculated 289 (280-300); Potassium 3.8 mEq/L (3.5-5.1); Sodium 139 mEq/L (136-145); eGFR For African Americans > 60 (> 60); eGFR For Non-African Americans > 60 (> 60)
[2017-10-02 13:57] LABS: Troponin I < 0.03 ng/mL (< 0.04)
[2017-10-02] MEDS ORDERED: Levofloxacin 750 MG/150 ML 750 MG/150 ML BAG IVPB ONE (14:05)
--- NOTE | 2017-10-02 14:44 | Internal Med History&Physical ---
<Thanh Pham - Last Filed: 10/02/17 17:50> Date of Encounter: 10/02/17 Time of Encounter: 14:44 Assessment and Plan (1) COPD exacerbation Current visit: Yes Status: Acute Known history of COPD. patient is dependent on 2 L of home oxygen at all times. -Patient developed worsening shortness of breath 2 weeks. Denies having any fever or chills. -Upon arrival to the hospital, patient had 93% O2 saturation. -Venous blood gas demonstrated the following: PH 7.47, PCO2 37, PO2 219, HCO3 26. -White count was within normal limits. No fever. -Chest x-ray was unremarkable. -Patient has no known history of COPD. Plan: -DuoNeb's 3 mL inhaled every 4 scheduled -Solu-Medrol 60 mg every 6 -O2 via nasal cannula (2) DVT prophylaxis Current visit: No Status: Acute heparin 5000 SQ Q12 Internal Medicine - H&P: HPI Chief complaint: Cough Admitted From: Home History of present illness: Ms. Garcia is a 67 year old female who presented to the hospital with cough, congestion, chest pain. Has worsened over the last 2 weeks. Intermittent chest pressure during this time. No aggravating or alleviating factors. Uses 2 L of oxygen at home. O2 saturation was 93% on presentation. Negative influenza screen. Chest x-ray was unremarkable. Patient was given a 1 time dose of DuoNeb, ASA, Levaquin, and Solu-Medrol in the emergency department. 2 sets of blood cultures were ordered. Venous blood gas demonstrated the following: PH 7.47, PCO2 37, PO2 219, HCO3 26. Echocardiogram from 05/13/2015 demonstrated the following: Ejection fraction 60 %. Normal LV structure and function Mild LV diastolic dysfunction Normal right ventricular structure and function No evidence of pulmonary hypertension. No significant valvular dysfunction. Patient was seen and examined at bedside this afternoon. Patient appears to be in mild respiratory distress. Denies having any fever, chills, cough, or chest pain. States that she has had several episodes like this in the past, but this is the worst it has been. Past Med Surg Social Fam HX - Past Medical History Medical history: COPD, CVA Psychiatric history: no psych history - Past Surgical History Surgical History: cholecystectomy, other - Social History Smoking Status: Current every day smoker Smokeless Tobacco Status: No Alcohol use: none Drug use: none - Family History Father Hx Family Cardiac Disorders: Yes (CHF, HTN) Hx Family Cancer: Yes (lung) Hx Family GI Disorders: Yes (diverticulitis) Hx Family Endocrine Disorder: Yes (DM) Mother Living Status: Hx Family Cardiac Disorders: Yes Hx Family Endocrine Disorder: Yes Internal Medicine - H&P: Meds Budesonide/Formoterol 160/4.5 [Symbicort 160/4.5] 2 puff IH BIDR 05/12/15 [ History] Clopidogrel [Plavix] 75 mg PO DAILY 05/12/15 [History] Cyclobenzaprine [Flexeril] 10 mg PO TID PRN 05/12/15 [History] Furosemide [Lasix] 40 mg PO BID PRN 05/12/15 [History] Albuterol Sulfate [Proair Hfa] 2 puff IH BID PRN 07/30/16 [History] Gabapentin [Neurontin] 300 mg PO TID 07/31/16 [History] 3 Allergy/AdvReac Type Severity Reaction Status Date / Time Penicillins Allergy Anaphylaxis Verified 05/12/15 16:09 metronidazole [From Flagyl] AdvReac Vomiting Verified 07/31/16 12:19 naproxen AdvReac Vomiting Verified 07/31/16 12:19 NSAIDS (Non-Steroidal AdvReac Vomiting Verified 07/31/16 12:19 Anti-Inflamma roflumilast [From Daliresp] AdvReac Vomiting Verified 07/31/16 12:19 Sulfa (Sulfonamide AdvReac Vomiting Verified 07/31/16 12:19 Antibiotics) All Systems PM: A 10-system review of systems was performed and is negative for pertinent findings except as documented above in the HPI. - Constitutional Constitutional: no chills, no fever(s), no night sweats - EENT Eyes: no change in vision, no discharge, no pain, no photophobia Ears: no ear discharge, no ear pain, no tinnitus Nose, mouth and throat: no dysphagia, no sore throat - Cardiovascular Cardiovascular ROS IM: chest pain, dyspnea, dyspnea on exertion, no diaphoresis , no lightheadedness, no palpitations, no syncope - Respiratory Respiratory: cough, dyspnea, wheezing, no excessive phlegm production - Hematologic/Lymphatic Hematologic/Lymphatic: no easy bruising - Constitutional Vitals: Temp Pulse Resp BP Pulse Ox 98.2 F 96 18 112/53 93 10/02/17 12:24 10/02/17 14:06 10/02/17 14:06 10/02/17 14:06 10/02/17 14:06 General appearance: Present: mild distress, A&O X 3 - Head Head exam: Present: atraumatic, normocephalic - Eye Eye exam: Present: PERRL, conjuntiva pink, sclera anicteric Pupils: Present: PERRL - Neck Neck exam general surgery: Present: supple, trachea midline. Absent: lymphadenopathy - Respiratory Respiratory exam: Present: decreased breath sounds, prolonged expiratory phase, wheezes. Absent: accessory muscle use, rales, rhonchi - Cardiovascular Cardiovascular exam: Present: RRR, +S1, +S2. Absent: diastolic murmur, gallop, rubs, systolic murmur - Extremities Exam Extremities exam: Present: warm, radial pulses palpable and symmetrical. Absent : calf tenderness, cyanotic, pedal edema - Neurological Exam Neurological exam: Present: oriented X3, no focal deficits. Absent: pronater drift, facial droop, speech deficit - Skin Skin exam: Present: dry, intact Internal Med - H&P Results - Labs CBC & Chem 7: 10/02/17 13:05 10/02/17 13:05 Labs: Short CBC 10/02/17 Range/Units 13:05 WBC 7.5 (4.3-11.1) K/mcL Hgb 13.5 (11.5-15.4) g/dL Hct 42.1 (35.3-44.9) % Plt Count 211 (140-400) K/mcL Neutrophils # 5.2 (1.6-8.9) K/mcL BMP 10/02/17 13:05 Sodium 139 Potassium 3.8 Chloride 104 Carbon Dioxide 27 BUN 15 Creatinine 0.51 L Glucose 101 Calcium 8.8 Cardiac Enzymes 10/02/17 Range/Units 13:05 Troponin I < 0.03 (< 0.04) ng/mL - ABG Interpretation ABG results: 10/02/17 10/02/17 13:26 13:43 VBG pH 7.41 7.47 H VBG pCO2 48 37 L VBG pO2 134 H 219 H VBG HCO3 30 H 26 - Impressions ITS Impressions Chest X-Ray 10/02/17 12:29 IMPRESSION: No evidence of acute cardiopulmonary disease. D/ / Carlos A Richardson MD / Carlos A Richardson MD Interpreting Provider: Carlos A Richardson MD <Rob Lopez - Last Filed: 10/03/17 12:18> Date of Encounter: 10/03/17 Internal Medicine - H&P: HPI History of present illness: Ms. Garcia is a 67 year old female All Systems PM: A 10-system review of systems was performed and is negative for pertinent findings except as documented above in the HPI. - Constitutional Vitals: Temp Pulse Resp BP Pulse Ox 98.7 F 70 17 111/58 94 10/03/17 08:36 10/03/17 08:36 10/03/17 08:36 10/03/17 08:36 10/03/17 08:36 Internal Med - H&P Results - Labs CBC & Chem 7: 10/02/17 13:05 10/02/17 13:05 - Attending Attestation I examined this patient and my medical decision-making was reviewed with the Resident Physician. I agree with the documented findings, disposition and treatment plan as described except to the extent set forth below.
[2017-10-02] MEDS ORDERED: Naloxone 0.4 MG/ML INJ IVP PRN (15:16)
[2017-10-02] MEDS: Ipratropium/Albuterol Neb 3 ML IH SCH ×2 (16:20→22:26)
[2017-10-02] MEDS: methylPREDNISolone 125 MG/2 ML VIAL IVP SCH (18:00)
[2017-10-02] MEDS ORDERED: *HR* Heparin 5,000 UNIT/ML VIAL SQ SCH (18:00)
[2017-10-02] MEDS: *HR* Heparin 5,000 UNIT/ML VIAL SQ SCH (18:10)
--- NOTE | 2017-10-02 20:23 | Electrocardiograph Report ---
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
[2017-10-03] MEDS: methylPREDNISolone 125 MG/2 ML VIAL IVP SCH ×3 (00:09→12:27)
[2017-10-03] MEDS: Ipratropium/Albuterol Neb 3 ML IH SCH ×2 (04:36→10:47)
[2017-10-03] MEDS: *HR* Heparin 5,000 UNIT/ML VIAL SQ SCH (05:47)
--- NOTE | 2017-10-03 07:33 | Internal Med Progress Note ---
Date of Encounter: 10/03/17 Time of Encounter: 07:32 - Assessment and plan (1) COPD exacerbation Current Visit: Yes Status: Acute Assessment and plan: Known history of COPD. patient is dependent on 2 L of home oxygen at all times. -Patient developed worsening shortness of breath 2 weeks. Denies having any fever or chills. -Upon arrival to the hospital, patient had 93% O2 saturation. -Venous blood gas demonstrated the following: PH 7.47, PCO2 37, PO2 219, HCO3 26. -White count was within normal limits. No fever. -Chest x-ray was unremarkable. -Patient has no known history of COPD. Plan: -DuoNeb's 3 mL inhaled every 4 scheduled -Solu-Medrol 60 mg every 6 -O2 via nasal cannula (2) DVT prophylaxis Current Visit: No Status: Acute Assessment and plan: heparin 5000 SQ Q12 - Subjective Interval history: Patient was seen and examined at bedside this morning. - Constitutional Vitals: Temp Pulse Resp BP Pulse Ox 97.9 F 62 17 102/50 94 10/03/17 04:20 10/03/17 04:20 10/03/17 04:36 10/03/17 04:20 10/03/17 04:36 General appearance: Present: mild distress, A&O X 3 - Head Head exam: Present: atraumatic, normocephalic - Eye Eye exam: Present: PERRL, conjuntiva pink, sclera anicteric Pupils: Present: PERRL - Neck Neck exam general surgery: Present: supple, trachea midline. Absent: lymphadenopathy - Respiratory Respiratory exam: Present: CTAB. Absent: accessory muscle use, rales, rhonchi, wheezes - Cardiovascular Cardiovascular exam: Present: RRR, +S1, +S2. Absent: diastolic murmur, gallop, rubs, systolic murmur - GI/Abdominal GI/Abdominal exam: Present: normal bowel sounds, soft, no peritoneal signs. Absent: distended, tenderness - Extremities Exam Extremities exam: Present: warm, radial pulses palpable and symmetrical. Absent : calf tenderness, cyanotic, pedal edema - Neurological Exam Neurological exam: Present: CN II-XII intact, oriented X3, no focal deficits. Absent: pronater drift, facial droop, speech deficit - Skin Skin exam: Present: dry, intact Internal Medicine: Result - Labs CBC & Chem 7: 03/12/18 13:05 10/02/17 13:05 - ABG Interpretation ABG results: PT/INR, D-dimer D-Dimer 287 ng/mLFEU (0-500) 10/02/17 13:08 Consult Discharge Plan - Plan Referrals: Kailey Alvarez MD [Primary Care Provider] -
[2017-10-03 12:22] VITALS: BP 113/53
--- NOTE | 2017-10-03 13:32 | Discharge Summary ---
<Thanh Pham - Last Filed: 10/03/17 13:30> Date of Encounter: 10/03/17 Time of Encounter: 13:32 - Discharge Diagnosis (1) COPD exacerbation Priority: Primary Status: Acute (2) DVT prophylaxis Priority: Secondary Status: Acute Hospital course: Ms. Garcia is a 67 year old female who presented to the hospital with cough, congestion, chest pain. Has worsened over the last 2 weeks. Intermittent chest pressure during this time. No aggravating or alleviating factors. Uses 2 L of oxygen at home. O2 saturation was 93% on presentation. Negative influenza screen. Chest x-ray was unremarkable. Patient was given a 1 time dose of DuoNeb, ASA, Levaquin, and Solu-Medrol in the emergency department. 2 sets of blood cultures were ordered. Venous blood gas demonstrated the following: PH 7.47, PCO2 37, PO2 219, HCO3 26. Echocardiogram from 05/13/2015 demonstrated the following: Ejection fraction 60%. Normal LV structure and function Mild LV diastolic dysfunction Normal right ventricular structure and function No evidence of pulmonary hypertension. No significant valvular dysfunction. Patient appeared to be in mild respiratory distress. Denied having any fever, chills, cough, or chest pain. States that she has had several episodes like this in the past, but this is the worst it has been. Patient was started on solumedrol 60 Q6, and was given duonebs and O2 support. On the date of discharge, patient reports that she is feeling much better today. Patient will be sent home on a steroid burst. - Time Spent with Patient Total time spent providing and/or coordinating discharge services: - Discharge Medications Prescriptions: predniSONE [PredniSONE] 40 mg PO DAILY #5 tablet Home Medications: Budesonide/Formoterol 160/4.5 [Symbicort 160/4.5] 2 puff IH BIDR 05/12/15 [ History] Clopidogrel [Plavix] 75 mg PO DAILY 05/12/15 [History] Cyclobenzaprine [Flexeril] 10 mg PO TID PRN 05/12/15 [History] Furosemide [Lasix] 40 mg PO BID PRN 05/12/15 [History] Albuterol Sulfate [Proair Hfa] 2 puff IH BID PRN 07/30/16 [History] Gabapentin [Neurontin] 300 mg PO TID 07/31/16 [History] predniSONE [PredniSONE] 40 mg PO DAILY #5 tablet 10/03/17 [Rx] Allergies/Adverse Reactions: 3 Allergy/AdvReac Type Severity Reaction Status Date / Time Penicillins Allergy Anaphylaxis Verified 05/12/15 16:09 metronidazole [From Flagyl] AdvReac Vomiting Verified 07/31/16 12:19 naproxen AdvReac Vomiting Verified 07/31/16 12:19 NSAIDS (Non-Steroidal AdvReac Vomiting Verified 07/31/16 12:19 Anti-Inflamma roflumilast [From Daliresp] AdvReac Vomiting Verified 07/31/16 12:19 Sulfa (Sulfonamide AdvReac Vomiting Verified 07/31/16 12:19 Antibiotics) Date of admission: 10/02/17 17:54 Primary care physician: Kailey Alvarez Discharging clinician: Thanh Pham Anticipated date of discharge: 10/03/17 - Constitutional Vitals: Temp Pulse Resp BP Pulse Ox 97.8 F 81 16 113/53 93 10/03/17 12:20 10/03/17 12:20 10/03/17 12:20 10/03/17 12:20 10/03/17 12:20 General appearance: Present: mild distress, A&O X 3 - Head Head exam: Present: atraumatic, normocephalic - Eye Eye exam: Present: PERRL, conjuntiva pink, sclera anicteric Pupils: Present: PERRL - Neck Neck exam general surgery: Present: supple, trachea midline. Absent: lymphadenopathy - Respiratory Respiratory exam: Present: CTAB, prolonged expiratory phase. Absent: accessory muscle use, rales, rhonchi, wheezes - Cardiovascular Cardiovascular exam: Present: RRR, +S1, +S2. Absent: diastolic murmur, gallop, rubs, systolic murmur - Extremities Exam Extremities exam: Present: warm, radial pulses palpable and symmetrical. Absent : calf tenderness, cyanotic, pedal edema - Neurological Exam Neurological exam: Present: CN II-XII intact, oriented X3, no focal deficits. Absent: pronater drift, facial droop, speech deficit - Skin Skin exam: Present: dry, intact - Patient Status Disposition: Home, Self-Care Condition: Fair Overall status at discharge: patient is progressing back to baseline - Discharge Instructions Instructions: Chest Pain (DC), Influenza Vaccine (GEN), Chronic Obstructive Pulmonary Disease (DC) Follow Up With: Kailey Alvarez MD [Primary Care Provider] - 10/11/17 1:45 pm (Please follow up as schedule...) - Diet and Activity Activity: increase activity as tolerated Diet: advance to your usual diet <Mariusz Funk - Last Filed: 10/03/17 14:33> Date of Encounter: 10/03/17 Hospital course: Ms. Garcia is a 67 year old female Time spent discussing smoking cessation with patient: 3 to 10 minutes - Time Spent with Patient Total time spent providing and/or coordinating discharge services: Date of admission: 10/02/17 17:54 Primary care physician: Kailey Alvarez - Constitutional Vitals: Temp Pulse Resp BP Pulse Ox 97.8 F 81 16 113/53 93 10/03/17 12:20 10/03/17 12:20 10/03/17 12:20 10/03/17 12:20 10/03/17 12:20 - Attending Attestation I have seen and examined this patient at her bedside on 10/03 She is admitted and being managed for COPDE, she also has chronic resp failure and is on home O2 She has no new complains on eval and was asking to be discharged home as her breathing has improved CXR is clear, labs unremarkable, negative flu screen Her chest is CTAB and other systemic exam is unremarkable Labs unremarkable Safe to discharge home on prednisone, tobacco cessation encouraged, follow up with PCPs
[2017-10-03] MEDS ORDERED: FLUARIX QUAD 2017-18 36MOS UP/PF 0.5 ML SYRINGE IM ONE (14:00)
== END 2017-10-03 14:41 | disposition home or self-care (01) ==
LOC: 2ANU 12:21 → EMEROO 12:21 → 2ANU 16:31 → SUATTDRO 17:54
PROVIDERS: ADMIT Internal Medicine; ATTEND Internal Medicine

== ENCOUNTER 2017-11-24 22:16 | Observation (INO) ==
[2017-11-24] MEDS ORDERED: Ipratropium/Albuterol Neb 3 ML IH ONE (22:20)
--- NOTE | 2017-11-24 22:25 | Emergency Department Note ---
Disposition Clinical Impression: Acute exacerbation of chronic obstructive airways disease, Elevated troponin COPD (chronic obstructive pulmonary disease) Qualifiers: COPD type: unspecified COPD Qualified Code(s): J44.9 - Chronic obstructive pulmonary disease, unspecified Congestive heart failure Qualifiers: Heart failure type: diastolic Heart failure chronicity: unspecified Qualified Code(s): I50.30 - Unspecified diastolic (congestive) heart failure Pneumonia Qualifiers: Pneumonia type: due to unspecified organism Laterality: left Lung location: unspecified part of lung Qualified Code(s): J18.9 - Pneumonia, unspecified organism Disposition: Admitted As Inpatient Condition: Fair Time of Disposition: 02:27 General Adult HPI - General Stated complaint: SOB Time Seen by Provider: 11/24/17 22:20 Source: EMS Mode of arrival: EMS Limitations: no limitations Nursing Notes Reviewed: Yes Vital Signs Reviewed: Yes - History of Present Illness HPI Narrative: Patient is a 67-year-old female who presents to [facility] ED with chief complaint of difficulty breathing. States her symptoms have been going on for the last 3-4 days. Per EMS, when they arrived, she was saturating 82% on 4 L of oxygen. States she had audible wheezing. They gave her 2 albuterol treatments, one 25 mg of Solu-Medrol, 80 mg of Lasix. States she is supposed to be on Lasix but does not like to take it because it makes her [place] much. Past medical history significant for COPD and congestive heart failure. Denies any chest pain with these episodes. No nausea with vomiting, fever or chills. No abdominal pain, problems with urination or bowel movements. Onset (ago): day(s) (4) Radiation: non-radiation Pain Severity: severe Consistency: Worsening Improves with: nothing Worsens with: nothing Associated symptoms: Reports: shortness of breath. Denies: chest pain, fever/ chills, nausea/vomiting Treatments Prior to Arrival: none - Related Data Home Medications Medication Instructions Recorded Confirmed Budesonide/Formoterol 160/4.5 2 puff IH BIDR 05/12/15 11/25/17 [Symbicort 160/4.5] Clopidogrel [Plavix] 75 mg PO DAILY 05/12/15 11/25/17 Cyclobenzaprine [Flexeril] 10 mg PO TID PRN 05/12/15 11/25/17 Furosemide [Lasix] 40 mg PO BID PRN 05/12/15 11/25/17 Albuterol Sulfate [Proair Hfa] 2 puff IH BID PRN 07/30/16 11/25/17 Allergies Allergy/AdvReac Type Severity Reaction Status Date / Time Penicillins Allergy Anaphylaxis Verified 05/12/15 16:09 metronidazole [From Flagyl] AdvReac Vomiting Verified 07/31/16 12:19 naproxen AdvReac Vomiting Verified 07/31/16 12:19 NSAIDS (Non-Steroidal AdvReac Vomiting Verified 07/31/16 12:19 Anti-Inflamma roflumilast [From Daliresp] AdvReac Vomiting Verified 07/31/16 12:19 Sulfa (Sulfonamide AdvReac Vomiting Verified 07/31/16 12:19 Antibiotics) All systems ED: reviewed and negative except as stated. Past Medical History - Past Medical History Attestation: Yes The following information was validated with the patient. Source: patient Medical history: Reports: COPD, CVA Surgical history: Reports: cholecystectomy, other Psychiatric history: Reports: no psych history - Social History Smoking Status: Current every day smoker Smokeless Tobacco Status: No Alcohol use: Reports: none Drug use: Reports: none Physical Exam - General Limitations: no limitations General appearance: alert, in no apparent distress - Head Head exam: atraumatic, normocephalic, normal inspection - Eye Eye exam: Present: normal appearance, EOMI - ENT ENT exam: normal exam, normal oropharynx, mucous membranes moist - Neck Neck exam: Present: normal inspection, full ROM, trachea midline - Chest Chest inspection: Present: normal inspection, symmetric chest wall rise - Respiratory Respiratory exam: Present: wheezes (b/l) - Cardiovascular Cardiovascular exam: Present: regular rate, normal rhythm, normal heart sounds - Abdominal Exam Abdominal exam: Present: soft, Non-Tender. Absent: tenderness, distention, guarding, rebound, rigidity - Extremities Exam Extremities exam: Present: normal inspection, full ROM. Absent: tenderness, pedal edema - Neurological Exam Neurological exam: Present: alert, oriented X3 - Psychiatric Psychiatric exam: Present: normal affect, normal mood - Skin Skin exam: Present: warm, dry, intact, normal color Course Course Narrative: Patient seen and examined. Shortness of breath with history of COPD and CHF. She was already given Solu-Medrol and 80 mg of Lasix. We will give another 3 DuoNeb treatments that she is very wheezy bilaterally still. Due to her hypoxemia of 82% upon presentation. She is now saturating above 90% on 4 L nasal cannula oxygen. we will likely admit for COPD/CHF exacerbation. - Reevaluation(s) Reevaluation #1: Labwork shows mild troponin elevation of 0.05. 324 mg of aspirin ordered. Suspect this is likely secondary from demand ischemia. Chest x-ray also showed signs of a pneumonia. We will cover for HCAP since She Was Recently Admitted to the Hospital. Patient Covered with Vancomycin, Levaquin, Aztreonam since She Has a Penicillin Allergy. Patient Does Meet Criteria for Sepsis Though She Is Not in Septic Shock. We Will Hold off on IV Fluid Administration since She Has Congestive Heart Failure As Well. Time: 05:25 Vital Signs Temperature 100.7 F H 11/24/17 22:20 Pulse Rate 92 11/24/17 22:20 Respiratory Rate 20 11/24/17 22:20 Blood Pressure 145/60 11/24/17 22:20 O2 Sat by Pulse Oximetry 100 11/24/17 22:20 Temperature 98 F 11/25/17 05:06 Pulse Rate 86 11/25/17 05:06 Respiratory Rate 16 11/25/17 05:06 Blood Pressure 126/65 11/25/17 05:06 O2 Sat by Pulse Oximetry 98 11/25/17 05:06 Oxygen Delivery Oxygen Delivery Nasal Cannula Medical Decision Making - Medical Records Medical records reviewed: Yes I reviewed the patient's medical records. - Lab Data Lab results reviewed: Yes I reviewed the patient's lab results. Result diagrams: 11/25/17 04:42 11/24/17 22:20 Lab Results 11/24/17 11/24/17 11/24/17 Range/Units 22:20 22:20 22:20 WBC 13.5 H (4.3-11.1) K/mcL RBC 4.35 (3.82-4.97) M/mcL Hgb 13.1 (11.5-15.4) g/dL Hct 40.9 (35.3-44.9) % MCV 94.0 (83.0-100.0) fL MCH 30.1 (28.0-33.3) pg MCHC 32.0 (31.6-35.5) g/dL RDW 13.0 (11.5-14.5) % Plt Count 245 (140-400) K/mcL MPV 9.4 (9.4-12.4) fL Immature Gran % 0.4 (0-4) % Seg Neutrophils % 88.8 % Lymphocytes % 4.4 % Monocytes % 6.0 % Eosinophils % 0.2 % Basophils % 0.2 % Neutrophils # 12.0 H (1.6-8.9) K/mcL Lymphocytes # 0.6 (0.6-4.6) K/mcL Monocytes # 0.8 (0.0-1.3) K/mcL Eosinophils # 0.0 (0.0-0.6) K/mcL Basophils # 0.0 (0.0-0.2) K/mcL VBG pH (7.32-7.42) pH Units VBG pCO2 (41-51) mmHg VBG pO2 (25-50) mmHg VBG HCO3 (21-27) mEq/L Sodium 138 (136-145) mEq/L Potassium 3.9 (3.5-5.1) mEq/L Chloride 99 (98-107) mEq/L Carbon Dioxide 29 (23-29) mEq/L BUN 16 (8-23) mg/dL Creatinine 0.63 (0.60-1.20) mg/dL Est GFR ( Amer) > 60 (> 60) Est GFR (Non-Af Amer) > 60 (> 60) BUN/Creatinine Ratio 25 (6-26) Glucose 151 H (70-105) mg/dL Calculated Osmolality 290 (280-300) Lactic Acid (0.5-2.2) mmol/L Calcium 9.1 (8.6-10.3) mg/dL Troponin I 0.05 H* (< 0.04) ng/mL B-Natriuretic Peptide 295 H (Less than 100) pg/mL 11/24/17 11/24/17 Range/Units 22:37 22:54 WBC (4.3-11.1) K/mcL RBC (3.82-4.97) M/mcL Hgb (11.5-15.4) g/dL Hct (35.3-44.9) % MCV (83.0-100.0) fL MCH (28.0-33.3) pg MCHC (31.6-35.5) g/dL RDW (11.5-14.5) % Plt Count (140-400) K/mcL MPV (9.4-12.4) fL Immature Gran % (0-4) % Seg Neutrophils % % Lymphocytes % % Monocytes % % Eosinophils % % Basophils % % Neutrophils # (1.6-8.9) K/mcL Lymphocytes # (0.6-4.6) K/mcL Monocytes # (0.0-1.3) K/mcL Eosinophils # (0.0-0.6) K/mcL Basophils # (0.0-0.2) K/mcL VBG pH 7.37 (7.32-7.42) pH Units VBG pCO2 59 H (41-51) mmHg VBG pO2 48 (25-50) mmHg VBG HCO3 34 H (21-27) mEq/L Sodium (136-145) mEq/L Potassium (3.5-5.1) mEq/L Chloride (98-107) mEq/L Carbon Dioxide (23-29) mEq/L BUN (8-23) mg/dL Creatinine (0.60-1.20) mg/dL Est GFR ( Amer) (> 60) Est GFR (Non-Af Amer) (> 60) BUN/Creatinine Ratio (6-26) Glucose (70-105) mg/dL Calculated Osmolality (280-300) Lactic Acid 1.6 (0.5-2.2) mmol/L Calcium (8.6-10.3) mg/dL Troponin I (< 0.04) ng/mL B-Natriuretic Peptide (Less than 100) pg/mL - Radiology Data Radiology results reviewed: Yes I reviewed the patient's radiology results. Chest X-Ray 11/24/17 22:20 IMPRESSION: Mild patchy left lung airspace disease suspicious for pneumonia. When the patient is able, follow-up inspiratory PA and lateral examination the chest is recommended. D/ / Emile Person MD / Emile Person MD Interpreting Provider: Emile Person MD - EKG Data EKG #1 EKG attestation: Yes I reviewed and interpreted this EKG. EKG results narrative: EKG done at 223 shows sinus tachycardia with a rate of [address] elevation or depression noted. Normal axis. Mild ST depression noted in V4 through V6 with T-wave flattening.
[2017-11-24 22:50] LABS: Basophils % 0.2 %; Eosinophils % 0.2 %; Hematocrit 40.9 % (35.3-44.9); Hemoglobin 13.1 g/dL (11.5-15.4); Immature Granulocytes % 0.4 % (0-4); Lymphocytes # 0.6 K/mcL (0.6-4.6); Lymphocytes % 4.4 %; Mean Corpuscular Hemoglobin 30.1 pg (28.0-33.3); Mean Platelet Volume 9.4 fL (9.4-12.4); Monocytes # 0.8 K/mcL (0.0-1.3); Platelet Count 245 K/mcL (140-400); Red Blood Count 4.35 M/mcL (3.82-4.97); Segmented Neutrophils % 88.8 %
[2017-11-24 22:57] LABS: VBG HCO3 34 mEq/L (21-27); VBG PCO2 59 mmHg (41-51); VBG PH 7.37 pH Units (7.32-7.42); VBG PO2 48 mmHg (25-50)
[2017-11-24 23:14] LABS: BUN/Creatinine Ratio 25 (6-26); Blood Urea Nitrogen 16 mg/dL (8-23); Calcium 9.1 mg/dL (8.6-10.3); Carbon Dioxide 29 mEq/L (23-29); Chloride 99 mEq/L (98-107); Glucose 151 mg/dL (70-105); Osmolality,Calculated 290 (280-300); Potassium 3.9 mEq/L (3.5-5.1); Sodium 138 mEq/L (136-145); eGFR For African Americans > 60 (> 60); eGFR For Non-African Americans > 60 (> 60)
[2017-11-24 23:19] LABS: Troponin I 0.05 ng/mL (< 0.04)
[2017-11-24] MEDS ORDERED: Aspirin 81 MG TAB.CHEW PO STA (23:21)
[2017-11-24] MEDS ORDERED: Levofloxacin 750 MG/150 ML 750 MG/150 ML BAG IVPB ONE (23:22)
--- NOTE | 2017-11-24 23:56 | Emergency Department Note ---
Disposition Clinical Impression: Acute exacerbation of chronic obstructive airways disease, Elevated troponin, Pneumonia COPD (chronic obstructive pulmonary disease) Qualifiers: COPD type: unspecified COPD Qualified Code(s): J44.9 - Chronic obstructive pulmonary disease, unspecified Congestive heart failure Qualifiers: Heart failure type: diastolic Heart failure chronicity: unspecified Qualified Code(s): I50.30 - Unspecified diastolic (congestive) heart failure Disposition: Admitted As Inpatient General Adult [facility] - General Chief complaint: ED Shortness of Breath/Dyspnea Stated complaint: SOB Time Seen by Provider: 11/24/17 22:20 Source: EMS Mode of arrival: EMS Limitations: no limitations - History of Present Illness Location: chest Pain Scale: 0 Improves with: nothing Worsens with: nothing Associated symptoms: Reports: shortness of breath. Denies: chest pain, fever/ chills, nausea/vomiting Treatments Prior to Arrival: none - Related Data Home Medications Medication Instructions Recorded Confirmed Budesonide/Formoterol 160/4.5 2 puff IH BIDR 05/12/15 11/25/17 [Symbicort 160/4.5] Clopidogrel [Plavix] 75 mg PO DAILY 05/12/15 11/25/17 Cyclobenzaprine [Flexeril] 10 mg PO TID PRN 05/12/15 11/25/17 Furosemide [Lasix] 40 mg PO BID PRN 05/12/15 11/25/17 Albuterol Sulfate [Proair Hfa] 2 puff IH BID PRN 07/30/16 11/25/17 Allergies Allergy/AdvReac Type Severity Reaction Status Date / Time Penicillins Allergy Anaphylaxis Verified 05/12/15 16:09 metronidazole [From Flagyl] AdvReac Vomiting Verified 07/31/16 12:19 naproxen AdvReac Vomiting Verified 07/31/16 12:19 NSAIDS (Non-Steroidal AdvReac Vomiting Verified 07/31/16 12:19 Anti-Inflamma roflumilast [From Daliresp] AdvReac Vomiting Verified 07/31/16 12:19 Sulfa (Sulfonamide AdvReac Vomiting Verified 07/31/16 12:19 Antibiotics) Past Medical History - Past Medical History Medical history: Reports: COPD, CVA Surgical history: Reports: cholecystectomy, other Psychiatric history: Reports: no psych history - Social History Smoking Status: Current every day smoker Smokeless Tobacco Status: No Alcohol use: Reports: none Drug use: Reports: none Physical Exam - General Limitations: no limitations General appearance: alert, in no apparent distress Course Vital Signs Temperature 100.7 F H 11/24/17 22:20 Pulse Rate 92 11/24/17 22:20 Respiratory Rate 20 11/24/17 22:20 Blood Pressure 145/60 11/24/17 22:20 O2 Sat by Pulse Oximetry 100 11/24/17 22:20 Temperature 99.7 F H 11/25/17 01:52 Pulse Rate 83 11/25/17 01:52 Respiratory Rate 20 11/25/17 03:05 Blood Pressure 120/53 11/25/17 03:05 O2 Sat by Pulse Oximetry 95 11/25/17 03:05 Oxygen Delivery Oxygen Delivery Nasal Cannula Medical Decision Making - Lab Data Result diagrams: 11/24/17 22:20 11/24/17 22:20 Lab Results 11/24/17 11/24/17 11/24/17 Range/Units 22:20 22:20 22:20 WBC 13.5 H (4.3-11.1) K/mcL RBC 4.35 (3.82-4.97) M/mcL Hgb 13.1 (11.5-15.4) g/dL Hct 40.9 (35.3-44.9) % MCV 94.0 (83.0-100.0) fL MCH 30.1 (28.0-33.3) pg MCHC 32.0 (31.6-35.5) g/dL RDW 13.0 (11.5-14.5) % Plt Count 245 (140-400) K/mcL MPV 9.4 (9.4-12.4) fL Immature Gran % 0.4 (0-4) % Seg Neutrophils % 88.8 % Lymphocytes % 4.4 % Monocytes % 6.0 % Eosinophils % 0.2 % Basophils % 0.2 % Neutrophils # 12.0 H (1.6-8.9) K/mcL Lymphocytes # 0.6 (0.6-4.6) K/mcL Monocytes # 0.8 (0.0-1.3) K/mcL Eosinophils # 0.0 (0.0-0.6) K/mcL Basophils # 0.0 (0.0-0.2) K/mcL VBG pH (7.32-7.42) pH Units VBG pCO2 (41-51) mmHg VBG pO2 (25-50) mmHg VBG HCO3 (21-27) mEq/L Sodium 138 (136-145) mEq/L Potassium 3.9 (3.5-5.1) mEq/L Chloride 99 (98-107) mEq/L Carbon Dioxide 29 (23-29) mEq/L BUN 16 (8-23) mg/dL Creatinine 0.63 (0.60-1.20) mg/dL Est GFR ( Amer) > 60 (> 60) Est GFR (Non-Af Amer) > 60 (> 60) BUN/Creatinine Ratio 25 (6-26) Glucose 151 H (70-105) mg/dL Calculated Osmolality 290 (280-300) Lactic Acid (0.5-2.2) mmol/L Calcium 9.1 (8.6-10.3) mg/dL Troponin I 0.05 H* (< 0.04) ng/mL B-Natriuretic Peptide 295 H (Less than 100) pg/mL 11/24/17 11/24/17 Range/Units 22:37 22:54 WBC (4.3-11.1) K/mcL RBC (3.82-4.97) M/mcL Hgb (11.5-15.4) g/dL Hct (35.3-44.9) % MCV (83.0-100.0) fL MCH (28.0-33.3) pg MCHC (31.6-35.5) g/dL RDW (11.5-14.5) % Plt Count (140-400) K/mcL MPV (9.4-12.4) fL Immature Gran % (0-4) % Seg Neutrophils % % Lymphocytes % % Monocytes % % Eosinophils % % Basophils % % Neutrophils # (1.6-8.9) K/mcL Lymphocytes # (0.6-4.6) K/mcL Monocytes # (0.0-1.3) K/mcL Eosinophils # (0.0-0.6) K/mcL Basophils # (0.0-0.2) K/mcL VBG pH 7.37 (7.32-7.42) pH Units VBG pCO2 59 H (41-51) mmHg VBG pO2 48 (25-50) mmHg VBG HCO3 34 H (21-27) mEq/L Sodium (136-145) mEq/L Potassium (3.5-5.1) mEq/L Chloride (98-107) mEq/L Carbon Dioxide (23-29) mEq/L BUN (8-23) mg/dL Creatinine (0.60-1.20) mg/dL Est GFR ( Amer) (> 60) Est GFR (Non-Af Amer) (> 60) BUN/Creatinine Ratio (6-26) Glucose (70-105) mg/dL Calculated Osmolality (280-300) Lactic Acid 1.6 (0.5-2.2) mmol/L Calcium (8.6-10.3) mg/dL Troponin I (< 0.04) ng/mL B-Natriuretic Peptide (Less than 100) pg/mL Critical Care Time Critical Care Time: Yes Total Critical Care Time: 35 Attestation: Critical care performed: Time is exclusive of separately billable procedures. Time includes: direct patient care, patient reassessment, coordination of patient care, interpretation of data (laboratory data, radiology data, and respiratory data), review of patient's medical records, medical consultation and documentation of patient care. Procedures included in critical care time: Procedures excluded from critical care time: Attestation Statement - Attestation Attestation: I examined this patient and my medical decision-making was reviewed with the Resident Physician. I agree with the documented findings, disposition and treatment plan as described except to the extent set forth below. Patient presents to the ED with a chief complaint of shortness of breath. Increasing over the past few days. Coughing. Patient fell and respiratory distress by EMS. She was satting 88% on her home oxygen of 4 L. They administered nebs and steroids and Lasix and states she is improved. On my examination she is awake alert and oriented. Diffuse expiratory wheezing on lung auscultation. Tachypnea satting 88 on 4 L. She satting 92 when turned up to 5. Plan. Nebs given. Patient is improved but still tachypneic requiring increasing oxygen. X-ray shows an infiltrate. She has elevated white blood cell count is mildly tachycardic. Febrile 100.7. She meets sepsis criteria without shock. Starting IV antibiotic and will admit to the hospitalist.
[2017-11-25] MEDS ORDERED: Aztreonam 2,000 MG in Water for inj. (sterile) 20 ML 20 ML IVP ONE
[2017-11-25] MEDS ORDERED: Acetaminophen 325 MG TABLET PO PRN (00:35)
[2017-11-25] MEDS ORDERED: Naloxone 0.4 MG/ML INJ IVP PRN (00:35)
--- NOTE | 2017-11-25 00:40 | Internal Med History&Physical ---
Date of Encounter: 11/25/17 Time of Encounter: 00:36 Internal Medicine - H&P: HPI Chief complaint: shortness of breath Admitted From: Emergency Dept Plans for Post Hospital Care: Home History of present illness: Ms. Garcia is a 67 year old female with history of COPD on chronic O2, GERD, MARIELY, and diastolic HF who presents with shortness of breath. Patient was hospitalized in September for COPD exacerbation. This time she comes in by EMS as she was hypoxic in the 80s on 4L O2. She is usually on 2L O2 via nasal cannula and uses a CPAP at night. She was given nebs, IV solumedrol, and IV lasix in route. In the ED, she was found to have pneumonia and was significantly wheezy. Given Broad spectrum IV abx, more nebs and was able to get back to her chronic O2 needs. Feeling better now. Been having shortness of breath and a cough x 3 days. Has been feeling feverish. Pleuritic chest pain on and off but EKG with nothing suggestive of acute ischemia. Temp 100.7 in ED. Labs show leukocytosis . Troponin was 0.05 and BNP was 295. Past Med Surg Social Fam HX - Past Medical History Medical history: COPD, CVA Psychiatric history: no psych history - Past Surgical History Surgical History: cholecystectomy, other - Social History Smoking Status: Current every day smoker Smokeless Tobacco Status: No Alcohol use: none Drug use: none - Family History Father Family Member Ethnicity: Non- Living Status: Hx Family Cardiac Disorders: Yes (CHF, HTN) Hx Family Respiratory Disorders: No Hx Family Cancer: Yes (lung) Hx Family GI Disorders: Yes (diverticulitis) Hx Family Endocrine Disorder: Yes (DM) Hx Family Neuromuscular Disorders: No Hx Family Neurologic Disorders: No Hx Family HEENT Disorders: No Hx Family Autoimmune Disorders: No Mother Family Member Ethnicity: Non- Living Status: Hx Family Cardiac Disorders: Yes Hx Family Respiratory Disorders: No Hx Family Cancer: No Hx Family GI Disorders: No Hx Family Endocrine Disorder: Yes Hx Family Neuromuscular Disorders: No Hx Family Neurologic Disorders: No Hx Family HEENT Disorders: No Hx Family Autoimmune Disorders: No Internal Medicine - H&P: Meds Budesonide/Formoterol 160/4.5 [Symbicort 160/4.5] 2 puff IH BIDR 05/12/15 [ History] Clopidogrel [Plavix] 75 mg PO DAILY 05/12/15 [History] Cyclobenzaprine [Flexeril] 10 mg PO TID PRN 05/12/15 [History] Furosemide [Lasix] 40 mg PO BID PRN 05/12/15 [History] Albuterol Sulfate [Proair Hfa] 2 puff IH BID PRN 07/30/16 [History] Gabapentin [Neurontin] 300 mg PO TID 07/31/16 [History] predniSONE [PredniSONE] 40 mg PO DAILY #5 tablet 10/03/17 [Rx] 3 Allergy/AdvReac Type Severity Reaction Status Date / Time Penicillins Allergy Anaphylaxis Verified 05/12/15 16:09 metronidazole [From Flagyl] AdvReac Vomiting Verified 07/31/16 12:19 naproxen AdvReac Vomiting Verified 07/31/16 12:19 NSAIDS (Non-Steroidal AdvReac Vomiting Verified 07/31/16 12:19 Anti-Inflamma roflumilast [From Daliresp] AdvReac Vomiting Verified 07/31/16 12:19 Sulfa (Sulfonamide AdvReac Vomiting Verified 07/31/16 12:19 Antibiotics) All Systems PM: A 10-system review of systems was performed and is negative for pertinent findings except as documented above in the HPI. Review of systems: All systems reviewed are negative except as mentioned above - Constitutional Vitals: Temp Pulse Resp BP Pulse Ox 100.7 F H 95 20 113/71 97 11/24/17 22:20 11/24/17 23:00 11/24/17 22:57 11/24/17 23:00 11/24/17 23:00 Exam: GEN: NAD HEENT: AT, NC, No cyanosis, oral mucosa is moist, No JVD Lymphatics: No lymphadenoapthy Eyes: Extrocular muscles intact, anicteric CVS:RRR. S1, S2, No m/r/g RESP: Diminished with expiratory wheezes posteriorly. ABD: Soft, NT, ND, +BS EXT: Trace lower edema, No rashes, 2+ DP NEURO: Nonfocal, CN II-XII intact, No focal motor or sensory deficits Psych: Cooperative, Not anxious or depressed Internal Med - H&P Results - Labs CBC & Chem 7: 11/24/17 22:20 05/04/18 22:20 Labs: Short CBC 11/24/17 Range/Units 22:20 WBC 13.5 H (4.3-11.1) K/mcL Hgb 13.1 (11.5-15.4) g/dL Hct 40.9 (35.3-44.9) % Plt Count 245 (140-400) K/mcL Neutrophils # 12.0 H (1.6-8.9) K/mcL BMP 11/24/17 22:20 Sodium 138 Potassium 3.9 Chloride 99 Carbon Dioxide 29 BUN 16 Creatinine 0.63 Glucose 151 H Calcium 9.1 Cardiac Enzymes 11/24/17 Range/Units 22:20 Troponin I 0.05 H* (< 0.04) ng/mL - ABG Interpretation ABG results: 11/24/17 22:54 VBG pH 7.37 VBG pCO2 59 H VBG pO2 48 VBG HCO3 34 H - Impressions ITS Impressions Chest X-Ray 11/24/17 22:20 IMPRESSION: Mild patchy left lung airspace disease suspicious for pneumonia. When the patient is able, follow-up inspiratory PA and lateral examination the chest is recommended. D/ / Emile Person MD / Emile Person MD Interpreting Provider: Emile Person MD - Assessment and plan (1) Acute and chronic respiratory failure with hypoxia Current Visit: No Status: Acute Assessment and plan: Findings most consistent with acute on chronic hypoxic respiratory failure due to pneumonia and COPD exacerbation. Possibly some component of CHF but very minor. We will treat as below. (2) HCAP (healthcare-associated pneumonia) Current Visit: Yes Status: Acute Assessment and plan: We will treat with IV vancomycin and Zosyn. Continue nebs and O2 support. Follow-up on blood cultures. Check sputum culture if able to give a sample. Check urine strep and Legionella. Normal lactic acid. (3) Acute exacerbation of chronic obstructive airways disease Current Visit: No Status: Acute Assessment and plan: Continue nebs. Continue IV Solu-Medrol every 6 hours. O2 support and wean down as tolerated. (4) Elevated troponin Current Visit: Yes Status: Acute Assessment and plan: Likely demand ischemia from hypoxia. We will check an echocardiogram and trend cardiac enzymes for now. Telemetry. (5) Congestive heart failure Current Visit: Yes Status: Acute Assessment and plan: The patient does not seem in overt heart failure. She was given IV Lasix in route. We will resume the patient on her home Lasix. Check an echocardiogram. Chest x-ray is clear in terms of fluids/edema/pleural effusions. Qualifiers: Heart failure type: diastolic Heart failure chronicity: unspecified Qualified Code(s): I50.30 - Unspecified diastolic (congestive) heart failure (6) DVT prophylaxis Current Visit: No Status: Acute Assessment and plan: Heparin subcutaneous. - Time Spent With Patient Total time spent is greater than 50% in coordination of care (as documented) at patient's floor/unit and/or counseling patient:
[2017-11-25] MEDS: Aztreonam 2,000 MG in Water for inj. (sterile) 20 ML 20 ML IVP SCH ×3 (02:41→16:56)
[2017-11-25] MEDS: Ipratropium/Albuterol Neb 3 ML IH SCH ×4 (03:04→21:27)
[2017-11-25 05:02] LABS: Basophils % 0.2 %; Hematocrit 36.4 % (35.3-44.9); Hemoglobin 11.6 g/dL (11.5-15.4); Immature Granulocytes % 0.4 % (0-4); Lymphocytes # 0.4 K/mcL (0.6-4.6); Lymphocytes % 3.1 %; Mean Corpuscular HGB Conc 31.9 g/dL (31.6-35.5); Mean Corpuscular Volume 94.1 fL (83.0-100.0); Mean Platelet Volume 9.3 fL (9.4-12.4); Monocytes # 0.2 K/mcL (0.0-1.3); Monocytes % 1.9 %; Neutrophils # 11.8 K/mcL (1.6-8.9); Platelet Count 210 K/mcL (140-400); Red Blood Count 3.87 M/mcL (3.82-4.97); Red Cell Distribution Width 13.1 % (11.5-14.5); Segmented Neutrophils % 94.4 %
[2017-11-25 05:25] LABS: BUN/Creatinine Ratio 28 (6-26); Blood Urea Nitrogen 17 mg/dL (8-23); Calcium 8.5 mg/dL (8.6-10.3); Carbon Dioxide 30 mEq/L (23-29); Chloride 98 mEq/L (98-107); Glucose 262 mg/dL (70-105); Magnesium 1.9 mg/dL (1.6-2.6); Osmolality,Calculated 295 (280-300); Potassium 3.5 mEq/L (3.5-5.1); Sodium 137 mEq/L (136-145); eGFR For African Americans > 60 (> 60); eGFR For Non-African Americans > 60 (> 60)
[2017-11-25 05:28] LABS: Platelet Estimate Normal (Normal)
[2017-11-25 05:33] LABS: Troponin I 0.05 ng/mL (< 0.04)
[2017-11-25] MEDS: methylPREDNISolone 125 MG/2 ML VIAL IVP SCH ×3 (05:52→16:56)
[2017-11-25] MEDS: *HR* Heparin 5,000 UNIT/ML VIAL SQ SCH ×3 (05:54→21:15)
[2017-11-25] MEDS ORDERED: Piperacillin/Tazobactam 3.375 GM in 0.9 % Sodium Chloride Mini Bag 100 ML IVPB SCH (08:00)
[2017-11-25] MEDS: Furosemide 40 MG TABLET PO SCH (08:53)
--- NOTE | 2017-11-25 09:25 | Internal Med Progress Note ---
<Rudy Moran - Last Filed: 11/25/17 13:26> Date of Encounter: 11/25/17 Time of Encounter: 10:00 - Assessment and plan (1) HCAP (healthcare-associated pneumonia) Current Visit: Yes Status: Acute Assessment and plan: We will treat with IV vancomycin and Zosyn. Continue nebs and O2 support. Follow-up on blood cultures. Check sputum culture if able to give a sample. Check urine strep and Legionella. Normal lactic acid. (2) Acute exacerbation of chronic obstructive airways disease Current Visit: Yes Status: Acute Assessment and plan: Continue nebs. Continue IV Solu-Medrol every 6 hours. O2 support and wean down as tolerated. (3) DVT prophylaxis Current Visit: No Status: Acute Assessment and plan: Heparin subcutaneous. (4) Acute and chronic respiratory failure with hypoxia Current Visit: No Status: Acute Assessment and plan: Findings most consistent with acute on chronic hypoxic respiratory failure due to pneumonia and COPD exacerbation. Possibly some component of CHF but very minor. We will treat as below. (5) Elevated troponin Current Visit: Yes Status: Acute Assessment and plan: Likely demand ischemia from hypoxia. Pending Echo (6) Congestive heart failure Current Visit: Yes Status: Acute Assessment and plan: The patient does not seem in overt heart failure. She was given IV Lasix in route. We will resume the patient on her home Lasix. Check an echocardiogram. Chest x-ray is clear in terms of fluids/edema/pleural effusions. Qualifiers: Heart failure type: diastolic Heart failure chronicity: unspecified Qualified Code(s): I50.30 - Unspecified diastolic (congestive) heart failure (7) Sepsis due to pneumonia Current Visit: Yes Status: Acute Assessment and plan: On Admission, WBC 13.5, T 100.7, RR 20 Presentation correlates with Pneumonia Patient meets sepsis criteria. Currently improved, but white count continues to be elevated. Will switch to prednisone tomorrow to avoid masking of infection related leukocytosis. blood cultures, sputum culture, urine culture pending. Continue with Aztrenam and Vacomycin. Patientrecently completed course of Levaquin as outpatient Continue Duoneb and oxygen as needed. - Time Spent With Patient Total time spent is greater than 50% in coordination of care (as documented) at patient's floor/unit and/or counseling patient: Greater than 35 minutes - Subjective Interval history: Ms. Garcia reports feeling better. Breathing better. Denies fever or chills overnight. Tolerating PO intake. Frustrated that she is admitted to hospital again, but reports overall improved since admission. Denies CP, coughing, abdominal pain, n/v/d/c. No overnight events. No further acute complaints. - Constitutional Vitals: Temp Pulse Resp BP Pulse Ox 98.1 F 68 16 116/60 93 11/25/17 07:19 11/25/17 07:19 11/25/17 07:19 11/25/17 07:19 11/25/17 07:19 - Head Head exam: Present: atraumatic, normocephalic - Eye Eye exam: Present: PERRL, conjuntiva pink, sclera anicteric Pupils: Present: PERRL - Neck Neck exam general surgery: Present: supple, trachea midline. Absent: lymphadenopathy - Respiratory Respiratory exam: Present: CTAB, tachypnea. Absent: accessory muscle use, rales , rhonchi, wheezes - Cardiovascular Cardiovascular exam: Present: RRR, +S1, +S2. Absent: diastolic murmur, gallop, rubs, systolic murmur - GI/Abdominal GI/Abdominal exam: Present: normal bowel sounds, soft, no peritoneal signs. Absent: distended, tenderness - Extremities Exam Extremities exam: Present: warm, radial pulses palpable and symmetrical. Absent : calf tenderness, cyanotic, pedal edema - Neurological Exam Neurological exam: Present: CN II-XII intact, oriented X3, no focal deficits. Absent: pronater drift, facial droop, speech deficit - Skin Skin exam: Present: dry, intact Internal Medicine: Result - Labs CBC & Chem 7: 11/25/17 04:42 11/25/17 04:42 Labs: Short CBC 11/25/17 Range/Units 04:42 WBC 12.5 H (4.3-11.1) K/mcL Hgb 11.6 D (11.5-15.4) g/dL Hct 36.4 (35.3-44.9) % Plt Count 210 (140-400) K/mcL Neutrophils # 11.8 H (1.6-8.9) K/mcL BMP 11/25/17 04:42 Sodium 137 Potassium 3.5 Chloride 98 Carbon Dioxide 30 H BUN 17 Creatinine 0.61 Glucose 262 H Calcium 8.5 L Cardiac Enzymes 11/25/17 Range/Units 04:42 Troponin I 0.05 H* (< 0.04) ng/mL Consult Discharge Plan - Plan Referrals: Kailey Alvarez MD [Primary Care Provider] - <Mariusz Funk - Last Filed: 11/25/17 14:36> Date of Encounter: 11/25/17 - Assessment and plan (1) Acute exacerbation of chronic obstructive airways disease Current Visit: Yes Status: Acute (2) DVT prophylaxis Current Visit: No Status: Acute (3) Acute and chronic respiratory failure with hypoxia Current Visit: No Status: Acute (4) Elevated troponin Current Visit: Yes Status: Acute (5) HCAP (healthcare-associated pneumonia) Current Visit: Yes Status: Acute (6) Congestive heart failure Current Visit: Yes Status: Acute Qualifiers: Heart failure type: diastolic Heart failure chronicity: unspecified Qualified Code(s): I50.30 - Unspecified diastolic (congestive) heart failure (7) Sepsis due to pneumonia Current Visit: Yes Status: Acute - Time Spent With Patient Total time spent is greater than 50% in coordination of care (as documented) at patient's floor/unit and/or counseling patient: - Constitutional Vitals: Temp Pulse Resp BP Pulse Ox 98.1 F 69 16 143/79 98 11/25/17 12:29 11/25/17 12:29 11/25/17 12:29 11/25/17 12:29 11/25/17 12:29 Internal Medicine: Result - Labs CBC & Chem 7: 11/25/17 04:42 11/25/17 04:42 Labs: Short CBC 11/25/17 Range/Units 04:42 WBC 12.5 H (4.3-11.1) K/mcL Hgb 11.6 D (11.5-15.4) g/dL Hct 36.4 (35.3-44.9) % Plt Count 210 (140-400) K/mcL Neutrophils # 11.8 H (1.6-8.9) K/mcL BMP 11/25/17 04:42 Sodium 137 Potassium 3.5 Chloride 98 Carbon Dioxide 30 H BUN 17 Creatinine 0.61 Glucose 262 H Calcium 8.5 L Cardiac Enzymes 05/05/18 05/05/18 Range/Units 04:42 10:34 Troponin I 0.05 H* 0.03 (< 0.04) ng/mL - Attending Attestation I saw at the bedside and examined this patient on 11/25/17 and my medical decision -making was reviewed with the Resident Physician. I agree with the documented findings, disposition and treatment plan as described except to the extent set forth below.
[2017-11-25] MEDS ORDERED: Aminoglycoside Consult 1 EACH MC ONE (16:57)
[2017-11-25] MEDS ORDERED: Levofloxacin 500 MG/100 ML 500 MG/100 ML BAG IVPB SCH (19:43)
[2017-11-25] MEDS: Levofloxacin 750 MG/150 ML 750 MG/150 ML BAG IVPB SCH (21:15)
[2017-11-26] MEDS: Ipratropium/Albuterol Neb 3 ML IH SCH ×4 (03:16→21:12)
[2017-11-26] MEDS: methylPREDNISolone 125 MG/2 ML VIAL IVP SCH (05:06)
[2017-11-26] MEDS: Aztreonam 2,000 MG in Water for inj. (sterile) 20 ML 20 ML IVP SCH ×2 (05:07→09:36)
[2017-11-26] MEDS: *HR* Heparin 5,000 UNIT/ML VIAL SQ SCH ×2 (05:22→12:16)
[2017-11-26 06:28] LABS: BUN/Creatinine Ratio 37 (6-26); Blood Urea Nitrogen 25 mg/dL (8-23); Calcium 8.9 mg/dL (8.6-10.3); Carbon Dioxide 34 mEq/L (23-29); Chloride 97 mEq/L (98-107); Glucose 149 mg/dL (70-105); Osmolality,Calculated 293 (280-300); Potassium 3.5 mEq/L (3.5-5.1); Sodium 138 mEq/L (136-145); eGFR For African Americans > 60 (> 60); eGFR For Non-African Americans > 60 (> 60)
[2017-11-26 06:33] LABS: Basophils % 0.2 %; Hematocrit 37.1 % (35.3-44.9); Hemoglobin 11.9 g/dL (11.5-15.4); Immature Granulocytes % 0.9 % (0-4); Lymphocytes # 0.8 K/mcL (0.6-4.6); Lymphocytes % 5.7 %; Mean Corpuscular HGB Conc 32.1 g/dL (31.6-35.5); Mean Corpuscular Hemoglobin 30.4 pg (28.0-33.3); Mean Corpuscular Volume 94.6 fL (83.0-100.0); Mean Platelet Volume 10.1 fL (9.4-12.4); Monocytes # 0.5 K/mcL (0.0-1.3); Monocytes % 3.6 %; Neutrophils # 12.3 K/mcL (1.6-8.9); Platelet Count 250 K/mcL (140-400); Red Blood Count 3.92 M/mcL (3.82-4.97); Red Cell Distribution Width 13.2 % (11.5-14.5); Segmented Neutrophils % 89.6 %
[2017-11-26] MEDS: Levofloxacin 750 MG/150 ML 750 MG/150 ML BAG IVPB SCH (09:36)
[2017-11-26] MEDS: predniSONE 20 MG TABLET PO SCH (09:36)
[2017-11-26] MEDS: Furosemide 40 MG TABLET PO SCH (09:36)
--- NOTE | 2017-11-26 11:53 | Internal Med Progress Note ---
<Rudy Moran - Last Filed: 11/26/17 11:49> Date of Encounter: 11/26/17 Time of Encounter: 11:30 - Assessment and plan (1) HCAP (healthcare-associated pneumonia) Current Visit: Yes Status: Acute Assessment and plan: CXR and presentation consistent with pneumonia. Continue with Aztreonam and Levaquin day #2. Continue nebs and O2 support. preliminary blood culture negative. Clean catch + Strep pneumoniae. Normal lactic acid. (2) Acute exacerbation of chronic obstructive airways disease Current Visit: Yes Status: Acute Assessment and plan: Continue nebs, prednisone. O2 support and wean down as tolerated. (3) DVT prophylaxis Current Visit: No Status: Acute Assessment and plan: Heparin subcutaneous. (4) Acute and chronic respiratory failure with hypoxia Current Visit: No Status: Acute Assessment and plan: Findings most consistent with acute on chronic hypoxic respiratory failure due to pneumonia and COPD exacerbation. Possibly some component of CHF but very minor. Treat per above. (5) Elevated troponin Current Visit: Yes Status: Acute Assessment and plan: Likely demand ischemia from hypoxia. Pending Echo (6) Congestive heart failure Current Visit: Yes Status: Acute Assessment and plan: The patient does not seem in overt heart failure. She was given IV Lasix in route. We will resume the patient on her home Lasix. Pending Echo. Chest x- ray is clear in terms of fluids/edema/pleural effusions. Qualifiers: Heart failure type: diastolic Heart failure chronicity: unspecified Qualified Code(s): I50.30 - Unspecified diastolic (congestive) heart failure (7) Sepsis Current Visit: Yes Status: Acute Assessment and plan: Currently improved, but white count continues to be elevated 13.5/ 12.5/ 13.7 On Admission, WBC 13.5, T 100.7, RR 20 Presentation correlates with Pneumonia Clean catch urine + strep pneumoniae antigen Switched to PO steroids Preliminary blood culture negative Continue with Aztrenam and Vacomycin. Patient recently completed course of Levaquin as outpatient. De-escalate antibiotics as appropriate pending sensitivities. Continue Duoneb and oxygen as needed Qualifiers: Sepsis type: Streptococcus, unspecified Qualified Code(s): A40.9 - Streptococcal sepsis, unspecified; A40 - Streptococcal sepsis - Time Spent With Patient Total time spent is greater than 50% in coordination of care (as documented) at patient's floor/unit and/or counseling patient: Greater than 35 minutes - Subjective Interval history: Ms. Garcia continues to have SOB. She reports coughing without sputum but feels that there is "something trying to come out". Overall, still not feeling well. At home, she is usually on 2-3L oxygen. She denies CP, f/c/n/v. No difficulties voiding. tolerating PO intake. +BM. No further acute complaints. - Constitutional Vitals: Temp Pulse Resp BP Pulse Ox 98.1 F 73 16 103/52 93 11/26/17 11:20 11/26/17 11:20 11/26/17 11:20 11/26/17 11:20 11/26/17 11:20 General appearance: Present: A&O X 3, pleasant, no acute distress - Head Head exam: Present: atraumatic, normocephalic - Eye Eye exam: Present: normal appearance, conjuntiva pink, sclera anicteric - Neck Neck exam general surgery: Present: supple, trachea midline. Absent: lymphadenopathy - Respiratory Respiratory exam: Present: CTAB, rhonchi, wheezes. Absent: accessory muscle use , rales - Cardiovascular Cardiovascular exam: Present: RRR, +S1, +S2. Absent: diastolic murmur, gallop, rubs, systolic murmur - GI/Abdominal GI/Abdominal exam: Present: normal bowel sounds, soft, no peritoneal signs. Absent: distended, tenderness - Extremities Exam Extremities exam: Present: warm, radial pulses palpable and symmetrical. Absent : calf tenderness, cyanotic, pedal edema - Neurological Exam Neurological exam: Present: alert, oriented X3, no focal deficits. Absent: pronater drift, facial droop, speech deficit - Skin Skin exam: Present: dry, intact Internal Medicine: Result - Labs CBC & Chem 7: 11/26/17 05:29 11/26/17 05:29 Labs: Short CBC 11/26/17 Range/Units 05:29 WBC 13.7 H (4.3-11.1) K/mcL Hgb 11.9 (11.5-15.4) g/dL Hct 37.1 (35.3-44.9) % Plt Count 250 (140-400) K/mcL Neutrophils # 12.3 H (1.6-8.9) K/mcL BMP 11/26/17 05:29 Sodium 138 Potassium 3.5 Chloride 97 L Carbon Dioxide 34 H BUN 25 H Creatinine 0.68 Glucose 149 H Calcium 8.9 Consult Discharge Plan - Plan Referrals: Kailey Alvarez MD [Primary Care Provider] - <Mariusz Funk - Last Filed: 11/26/17 13:52> Date of Encounter: 11/26/17 - Assessment and plan (1) Acute exacerbation of chronic obstructive airways disease Current Visit: Yes Status: Acute (2) DVT prophylaxis Current Visit: No Status: Acute (3) Acute and chronic respiratory failure with hypoxia Current Visit: No Status: Acute (4) Elevated troponin Current Visit: Yes Status: Acute (5) HCAP (healthcare-associated pneumonia) Current Visit: Yes Status: Acute (6) Congestive heart failure Current Visit: Yes Status: Acute Qualifiers: Heart failure type: diastolic Heart failure chronicity: unspecified Qualified Code(s): I50.30 - Unspecified diastolic (congestive) heart failure (7) Sepsis Current Visit: Yes Status: Acute Qualifiers: Sepsis type: Streptococcus, unspecified Qualified Code(s): A40.9 - Streptococcal sepsis, unspecified; A40 - Streptococcal sepsis - Time Spent With Patient Total time spent is greater than 50% in coordination of care (as documented) at patient's floor/unit and/or counseling patient: - Constitutional Vitals: Temp Pulse Resp BP Pulse Ox 98.1 F 73 16 103/52 93 11/26/17 11:20 11/26/17 11:20 11/26/17 11:20 11/26/17 11:20 11/26/17 11:20 Internal Medicine: Result - Labs CBC & Chem 7: 11/26/17 05:29 11/26/17 05:29 Labs: Short CBC 11/26/17 Range/Units 05:29 WBC 13.7 H (4.3-11.1) K/mcL Hgb 11.9 (11.5-15.4) g/dL Hct 37.1 (35.3-44.9) % Plt Count 250 (140-400) K/mcL Neutrophils # 12.3 H (1.6-8.9) K/mcL BMP 11/26/17 05:29 Sodium 138 Potassium 3.5 Chloride 97 L Carbon Dioxide 34 H BUN 25 H Creatinine 0.68 Glucose 149 H Calcium 8.9 - Attending Attestation I saw at the bedside and examined this patient on 11/26/17 and my medical decision -making was reviewed with the Resident Physician. I agree with the documented findings, disposition and treatment plan as described except to the extent set forth below. Being managed for sepsis secondary to pneumococcal PNA, Acute on chronic respiratory failure with hypoxia, elevated troponins, COPD exacerbation. She seen and evaluated at bedside, able to ambulate from bed to chair not in any form of distress, requesting to ambulate. Echocardiogram is pending for elevated troponin. Urine positive for Streptococcus antigen. Discontinue vancomycin and aztreonam. Continue Levaquin only. Continue other management.
[2017-11-27] MEDS: Ipratropium/Albuterol Neb 3 ML IH SCH ×3 (04:22→15:35)
[2017-11-27] MEDS: *HR* Heparin 5,000 UNIT/ML VIAL SQ SCH ×2 (05:39→06:13)
[2017-11-27 06:43] LABS: Basophils # 0.1 K/mcL (0.0-0.2); Basophils % 0.9 %; Eosinophils % 0.1 %; Hematocrit 39.9 % (35.3-44.9); Hemoglobin 12.9 g/dL (11.5-15.4); Immature Granulocytes % 3.5 % (0-4); Lymphocytes # 1.7 K/mcL (0.6-4.6); Lymphocytes % 13.3 %; Mean Corpuscular HGB Conc 32.3 g/dL (31.6-35.5); Mean Corpuscular Hemoglobin 29.9 pg (28.0-33.3); Mean Corpuscular Volume 92.6 fL (83.0-100.0); Mean Platelet Volume 9.3 fL (9.4-12.4); Monocytes # 0.7 K/mcL (0.0-1.3); Monocytes % 5.8 %; Neutrophils # 9.6 K/mcL (1.6-8.9); Platelet Count 276 K/mcL (140-400); Red Blood Count 4.31 M/mcL (3.82-4.97); Segmented Neutrophils % 76.4 %
[2017-11-27 07:05] LABS: BUN/Creatinine Ratio 38 (6-26); Blood Urea Nitrogen 24 mg/dL (8-23); Carbon Dioxide 32 mEq/L (23-29); Chloride 98 mEq/L (98-107); Glucose 123 mg/dL (70-105); Osmolality,Calculated 293 (280-300); Potassium 3.1 mEq/L (3.5-5.1); Sodium 139 mEq/L (136-145); eGFR For African Americans > 60 (> 60); eGFR For Non-African Americans > 60 (> 60)
[2017-11-27 07:44] LABS: Platelet Estimate Normal (Normal); Reactive Lymphocytes Present (Not Present)
--- NOTE | 2017-11-27 08:13 | Internal Med Progress Note ---
Date of Encounter: 11/27/17 - Assessment and plan (1) Acute exacerbation of chronic obstructive airways disease Current Visit: Yes Status: Acute (2) DVT prophylaxis Current Visit: No Status: Acute (3) Acute and chronic respiratory failure with hypoxia Current Visit: No Status: Acute (4) Elevated troponin Current Visit: Yes Status: Acute (5) HCAP (healthcare-associated pneumonia) Current Visit: Yes Status: Acute (6) Congestive heart failure Current Visit: Yes Status: Acute Qualifiers: Heart failure type: diastolic Heart failure chronicity: unspecified Qualified Code(s): I50.30 - Unspecified diastolic (congestive) heart failure (7) Sepsis Current Visit: Yes Status: Acute Qualifiers: Sepsis type: Streptococcus, unspecified Qualified Code(s): A40.9 - Streptococcal sepsis, unspecified; A40 - Streptococcal sepsis - Time Spent With Patient Total time spent is greater than 50% in coordination of care (as documented) at patient's floor/unit and/or counseling patient: - Constitutional Vitals: Temp Pulse Resp BP Pulse Ox 97.6 F 65 16 117/65 95 11/27/17 07:35 11/27/17 07:35 11/27/17 07:35 11/27/17 07:35 11/27/17 07:35 General appearance: Present: A&O X 3, pleasant, no acute distress Internal Medicine: Result - Labs CBC & Chem 7: 11/27/17 06:28 11/27/17 06:28 Labs: Short CBC 11/27/17 Range/Units 06:28 WBC 12.6 H (4.3-11.1) K/mcL Hgb 12.9 (11.5-15.4) g/dL Hct 39.9 (35.3-44.9) % Plt Count 276 (140-400) K/mcL Neutrophils # 9.6 H (1.6-8.9) K/mcL BMP 11/27/17 06:28 Sodium 139 Potassium 3.1 L Chloride 98 Carbon Dioxide 32 H BUN 24 H Creatinine 0.63 Glucose 123 H Calcium 9.0 - Impressions Impressions Echocardiogram 11/26/17 11:15 Impressions: LVEF 60%. Mild left ventricular diastolic dysfunction. RV is not optimally evaluated. No significant valvular dysfunction. No pulmonary hypertension. Left Ventricular Wall Motion: Rest Echo Findings The apex, apical inferior, mid inferior, basal inferior, apical anterior, mid anterior and basal anterior lakhani were not visualized. All other wall segments showed normal motion. Findings: Study Quality * Technically sub-optimal due to clinical status. ECG Findings * Normal sinus rhythm. Left Ventricle * LVEF 60%. * Normal LV chamber size, wall thickness and function. * Mild left ventricular diastolic dysfunction. Right Ventricle * RV is not optimally evaluated. Left Atrium * Moderately dilated left atrium. Right Atrium * Mildly dilated right atrium. Aortic Valve * Aortic valve not well visualized. * No aortic regurgitation. * No aortic stenosis. Mitral Valve * Mitral valve not well visualized. * No mitral regurgitation. * No mitral stenosis. Tricuspid Valve * Tricuspid valve not well visualized. * Trace tricuspid regurgitation. * Estimated RA pressure is 8 mmHg. * Estimated RVSP is 22 mmHg. * No pulmonary hypertension. Pulmonic Valve * Pulmonic valve is not well visualized. * No pulmonic stenosis. * No pulmonic regurgitation. Pulmonary Artery * Pulmonary artery not well visualized. Aorta * Normally sized aortic root. Pericardium * There is no pericardial effusion present. Interatrial Septum * No evidence of PFO by color Doppler. IVC * The IVC is not dilated. * < 50% respiratory change. Consult Discharge Plan - Plan Referrals: Kailey Alvarez MD [Primary Care Provider] -
[2017-11-27] MEDS ORDERED: Potassium Chloride Elixir 20 MEQ/15 ML UDC PO SCH (09:00)
[2017-11-27] MEDS: Furosemide 40 MG TABLET PO SCH (09:07)
[2017-11-27] MEDS: predniSONE 20 MG TABLET PO SCH (09:07)
[2017-11-27] MEDS: Levofloxacin 750 MG/150 ML 750 MG/150 ML BAG IVPB SCH (09:08)
[2017-11-27 11:07] VITALS: BP 125/67
--- NOTE | 2017-11-27 14:25 | Discharge Summary ---
<Mariusz Funk T - Last Filed: 11/27/17 16:23> Date of Encounter: 11/27/17 - Discharge Diagnosis (1) Acute exacerbation of chronic obstructive airways disease Status: Acute (2) DVT prophylaxis Status: Acute (3) Acute and chronic respiratory failure with hypoxia Status: Acute (4) Elevated troponin Status: Acute (5) HCAP (healthcare-associated pneumonia) Status: Acute (6) Congestive heart failure Status: Acute Qualifiers: Heart failure type: diastolic Heart failure chronicity: unspecified Qualified Code(s): I50.30 - Unspecified diastolic (congestive) heart failure (7) Sepsis Status: Acute Qualifiers: Sepsis type: Streptococcus, unspecified Qualified Code(s): A40.9 - Streptococcal sepsis, unspecified Hospital course: Ms. Garcia is a 67 year old female - Time Spent with Patient Total time spent providing and/or coordinating discharge services: Greater than 30 minutes - Discharge Medications Prescriptions: levoFLOXacin [Levaquin] 750 mg PO DAILY #4 tablet Potassium Chloride [K-Tab ER] 20 meq PO DAILY #7 tablet.er predniSONE [PredniSONE] 40 mg PO DAILY #3 tablet Home Medications: Budesonide/Formoterol 160/4.5 [Symbicort 160/4.5] 2 puff IH BIDR 05/12/15 [ History] Clopidogrel [Plavix] 75 mg PO DAILY 05/12/15 [History] Cyclobenzaprine [Flexeril] 10 mg PO TID PRN 05/12/15 [History] Furosemide [Lasix] 40 mg PO BID PRN 05/12/15 [History] Albuterol Sulfate [Proair Hfa] 2 puff IH Q6H PRN 07/30/16 [History] Acetaminophen [Tylenol] 650 mg PO Q6HR PRN tablet 11/27/17 [Rx] Potassium Chloride [K-Tab ER] 20 meq PO DAILY #7 tablet.er 11/27/17 [Rx] levoFLOXacin [Levaquin] 750 mg PO DAILY #4 tablet 11/27/17 [Rx] predniSONE [PredniSONE] 40 mg PO DAILY #3 tablet 11/27/17 [Rx] Allergies/Adverse Reactions: 3 Allergy/AdvReac Type Severity Reaction Status Date / Time Penicillins Allergy Anaphylaxis Verified 05/12/15 16:09 metronidazole [From Flagyl] AdvReac Vomiting Verified 07/31/16 12:19 naproxen AdvReac Vomiting Verified 07/31/16 12:19 NSAIDS (Non-Steroidal AdvReac Vomiting Verified 07/31/16 12:19 Anti-Inflamma roflumilast [From Daliresp] AdvReac Vomiting Verified 07/31/16 12:19 Sulfa (Sulfonamide AdvReac Vomiting Verified 07/31/16 12:19 Antibiotics) Date of admission: 11/25/17 00:39 Primary care physician: Kailey Alvarez Consults: 11/25/17 01:58 Consult to Medical Editor [CONS] Routine Reason for SW Consult: Possible HH and living will 11/27/17 10:11 Consult to Physical Therapy [CONS] Routine Comment: Evaluate, develop and implement POC Reason for Consult: weakness Does patient have active BEDREST order?: No Is patient medically & hemodynamically stable?: Yes OT [Consult to Occupational Therapy] [CONS] Routine Comment: Evaluate, develop and implement POC Reason for Consult: weakness Does patient have active BEDREST order?: No Is patient medically & hemodynamically stable?: Yes - Constitutional Vitals: Temp Pulse Resp BP Pulse Ox 98.3 F 72 16 125/67 94 11/27/17 11:02 11/27/17 11:02 11/27/17 15:35 11/27/17 11:02 11/27/17 15:35 - Patient Status Disposition: Home Health Service Condition: Fair - Ambulatory Orders Ambulatory Orders: XR chest 2V [XR] Time Frame: 4 Weeks, Location: any Basic Metabolic Panel [CHEM] Time Frame: 1 Week, Location: any - Discharge Instructions Follow Up With: Kailey Alvarez MD [Primary Care Provider] - Additional Instructions: Continue to take medications as prescribed, finish course of potassium, Levaquin , prednisone Follow-up with primary care provider in 2-4 days Continue to rest as possible, wear oxygen as needed and increase if necessary to maintain SPO2 88-92% Return to the ED for chest pain, worsening shortness of breath, increased sputum production, increased fatigue, changes in level of consciousness - Attending Attestation I examined this patient 11/27, and my medical decision-making was reviewed with the Resident Physician. I agree with the documented findings, disposition and treatment plan as described except to the extent set forth below. 67 F who was admitted and managed for sepsis secondary to pneumococcal PNA, Acute on chronic respiratory failure with hypoxia, elevated troponins, COPD exacerbation. She is seen and evaluated at bedside, able to ambulate from bed to chair not in any form of distress. Echocardiogram noted, unremarkable for ischemic changes. Urine positive for Streptococcus antigen. Clinically stable to be discharged home with home health Rest of details as in the resident physicians documentation. <Dieter Mobley - Last Filed: 11/27/17 16:38> - NOTES TO OUTPATIENT PROVIDER Notes to Outpatient Provider: The patient was admitted for hypoxia with saturations in the 80s on 4 L oxygen where she usually uses 2-3. There is immediate concern for COPD exacerbation as well as pneumonia, which later was demonstrated on chest x-ray and by strep pneumo urine antigen. She received 3 days of IV Levaquin and steroids, and improved rapidly. She did develop hypokalemia while here, so she will be discharged with potassium supplementation. Additionally, we did get PT and OT evaluation which recommended home PT and OT. She has been given one-week supply of potassium as well as a follow-up BMP in 1 week and a follow-up chest x-ray in 4 weeks. Date of Encounter: 11/27/17 Time of Encounter: 08:10 - Discharge Diagnosis (1) Sepsis Priority: Primary Status: Acute Qualifiers: Sepsis type: Pneumococcus Qualified Code(s): A40.3 - Sepsis due to Streptococcus pneumoniae (2) Acute exacerbation of chronic obstructive airways disease Priority: Primary Status: Acute (3) Acute and chronic respiratory failure with hypoxia Priority: Primary Status: Acute (4) Elevated troponin Priority: Secondary Status: Acute (5) HCAP (healthcare-associated pneumonia) Priority: Secondary Status: Acute (6) Congestive heart failure Priority: Secondary Status: Acute Qualifiers: Heart failure type: diastolic Heart failure chronicity: unspecified Qualified Code(s): I50.30 - Unspecified diastolic (congestive) heart failure (7) DVT prophylaxis Priority: Secondary Status: Acute Hospital course: Ms. Garcia is a 67 year old female with history of diastolic CHF, COPD on 2 L home O2, GERD who presented to the ED for severe shortness of breath and increased O2 requirement over the past several days. In the ED she was found to cough significantly often, and was found to be hypoxic. At that time she was also noted to be very wheezy, and tachypnea. She did receive breathing treatments which were somewhat helpful. Because she had recently been in the hospital, there was initial concern for hospital acquired pneumonia, and this was confirmed on CXR. She was admitted to the hospital for pneumonia as well as acute exacerbation of COPD on steroids as well as vancomycin and Zosyn for initial suspicion of hospital-acquired pneumonia. Later she did have a urine strep pneumo antigen that was positive and she was due to escalated to Levaquin. The patient did initially present with leukocytosis which continued to improve over her stay here. Due to her history of mild diastolic CHF, we also determined that this patient may require some diuresis. This time she did end up coming hypokalemic which required potassium repletion. She continued to improve significantly and feels that it is appropriate now be discharged home with home health and PT. I believe that this is reasonable, and that the patient is aware of the plan and is able to follow it. - Time Spent with Patient Total time spent providing and/or coordinating discharge services: Date of admission: 11/25/17 00:39 Primary care physician: Kailey Alvarez Consults: 11/25/17 01:58 Consult to Medical Editor [CONS] Routine Reason for SW Consult: Possible HH and living will 11/27/17 10:11 Consult to Physical Therapy [CONS] Routine Comment: Evaluate, develop and implement POC Reason for Consult: weakness Does patient have active BEDREST order?: No Is patient medically & hemodynamically stable?: Yes OT [Consult to Occupational Therapy] [CONS] Routine Comment: Evaluate, develop and implement POC Reason for Consult: weakness Does patient have active BEDREST order?: No Is patient medically & hemodynamically stable?: Yes Discharging clinician: Dieter Mobley Anticipated date of discharge: 11/27/17 - Constitutional Vitals: Temp Pulse Resp BP Pulse Ox 98.3 F 72 16 125/67 98 11/27/17 11:02 11/27/17 11:02 11/27/17 11:02 11/27/17 11:02 11/27/17 11:02 General appearance: Present: A&O X 3, pleasant, no acute distress Exam: Gen: Vitals noted. No acute distress. HEENT: PERRL/EOMI, oropharynx clear, Normocephalic, atraumatic Neck: Supple. No adenopathy. Cardiac: RRR, no murmur, +S1/S2 Pulmonary: minimal wheezes noted on exam Abdomen: soft, nontender, BS noted, no guarding MSK: ROM intact, no joint swelling noted Extremities: trace BLE, nontender calf, no cyanosis or clubbing Neuro: A&Ox3, moves all extremities, no focal deficits Psych: Appropriate mood and behavior - Patient Status Functional capacity at discharge: uses cane/walker Overall status at discharge: patient is progressing back to baseline - Diet and Activity Activity: as per physical therapy, increase activity as tolerated, wear oxygen at all times Diet: low salt diet
--- NOTE | 2017-11-27 14:45 | Physician Discharge Referral ---
Home Health/Hosp Referral Info Transfer to: Home Health Attending Provider: Good Provider in Charge Post Discharge: PCP - Diagnosis (1) Acute exacerbation of chronic obstructive airways disease Priority: Primary Status: Acute (2) Acute and chronic respiratory failure with hypoxia Priority: Primary Status: Acute (3) Elevated troponin Priority: Secondary Status: Acute (4) HCAP (healthcare-associated pneumonia) Priority: Primary Status: Acute (5) Congestive heart failure Priority: Secondary Status: Acute (6) Sepsis Priority: Secondary Status: Acute (7) DVT prophylaxis Priority: Secondary Status: Acute - Respiratory Orders Smoking Cessation: Smoking cessation has been advised. For more information, call the [place] Tobacco Quit Line at 2-349-VTKO-NOW. - Transfer Medications Prescriptions: levoFLOXacin [Levaquin] 750 mg PO DAILY #4 tablet Potassium Chloride [K-Tab ER] 20 meq PO DAILY #7 tablet.er predniSONE [PredniSONE] 40 mg PO DAILY #3 tablet Home Medications: Budesonide/Formoterol 160/4.5 [Symbicort 160/4.5] 2 puff IH BIDR 05/12/15 [ History] Clopidogrel [Plavix] 75 mg PO DAILY 05/12/15 [History] Cyclobenzaprine [Flexeril] 10 mg PO TID PRN 05/12/15 [History] Furosemide [Lasix] 40 mg PO BID PRN 05/12/15 [History] Albuterol Sulfate [Proair Hfa] 2 puff IH Q6H PRN 07/30/16 [History] Acetaminophen [Tylenol] 650 mg PO Q6HR PRN tablet 11/27/17 [Rx] Potassium Chloride [K-Tab ER] 20 meq PO DAILY #7 tablet.er 11/27/17 [Rx] levoFLOXacin [Levaquin] 750 mg PO DAILY #4 tablet 11/27/17 [Rx] predniSONE [PredniSONE] 40 mg PO DAILY #3 tablet 11/27/17 [Rx] Allergies/Adverse Reactions: 3 Allergy/AdvReac Type Severity Reaction Status Date / Time Penicillins Allergy Anaphylaxis Verified 05/12/15 16:09 metronidazole [From Flagyl] AdvReac Vomiting Verified 07/31/16 12:19 naproxen AdvReac Vomiting Verified 07/31/16 12:19 NSAIDS (Non-Steroidal AdvReac Vomiting Verified 07/31/16 12:19 Anti-Inflamma roflumilast [From Daliresp] AdvReac Vomiting Verified 07/31/16 12:19 Sulfa (Sulfonamide AdvReac Vomiting Verified 07/31/16 12:19 Antibiotics) Certification: Further, I certify that my clinical findings support that this patient is homebound (i.e. absences from home require considerable and taxing effort and are for medical reasons or anabaptist services or infrequently or short duration when for other reasons) because: Homebound Reason: Absences from home are contraindicated except to recieve medical care, Leaving home requires considerable and taxing effort due to condition Attestation: My signature below is to certify that this patient is under my care and that I, or nurse practitioner, or a physician's assisted living assistant working with me, has a face-to -face encounter with this patient.
[2017-11-28] MEDS ORDERED: levoFLOXacin 750 MG TABLET PO SCH (09:00)
--- NOTE | 2017-11-28 15:45 | Electrocardiograph Report ---
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
== END 2017-11-27 16:58 | disposition home health service (06) | DRG 871 ==
LOC: EMEROO 22:16 → 2NENU 22:16 → SUATTDRO 11-25 00:39 → 2NENU 11-25 01:13
PROVIDERS: ADMIT Internal Medicine; ATTEND Internal Medicine

== ENCOUNTER 2019-10-08 09:32 | Observation (INO) ==
[2019-10-08] MEDS ORDERED: Ipratropium/Albuterol Neb 3 ML IH ONE (09:44)
[2019-10-08] MEDS ORDERED: methylPREDNISolone 125 MG/2 ML VIAL IVP ONE (09:44)
[2019-10-08 10:06] LABS: Basophils % 0.4 %; Eosinophils # 0.1 K/mcL (0.0-0.6); Eosinophils % 1.3 %; Hematocrit 45.3 % (35.3-44.9); Hemoglobin 14.1 g/dL (11.5-15.4); Immature Granulocytes % 0.3 % (0-4); Lymphocytes # 1.3 K/mcL (0.6-4.6); Mean Corpuscular HGB Conc 31.1 g/dL (31.6-35.5); Mean Corpuscular Volume 96.4 fL (83.0-100.0); Mean Platelet Volume 9.2 fL (9.4-12.4); Monocytes # 0.5 K/mcL (0.0-1.3); Monocytes % 6.2 %; Neutrophils # 5.5 K/mcL (1.6-8.9); Platelet Count 266 K/mcL (140-400); Red Cell Distribution Width 13.2 % (11.5-14.5); Segmented Neutrophils % 74.8 %; White Blood Count 7.4 K/mcL (4.3-11.1)
[2019-10-08 10:12] LABS: Prothrombin Time 10.8 Seconds (9.4-12.1)
[2019-10-08 10:26] LABS: Alanine Aminotransferase 12 Units/L (7-52); Albumin 4.1 g/dL (3.5-5.7); Albumin/Globulin Ratio 1.5 (1.1-2.2); Alkaline Phosphatase 82 Units/L (34-104); Aspartate Amino Transferase 14 Units/L (13-39); BUN/Creatinine Ratio 23 (6-26); Bilirubin,Total 0.5 mg/dL (0.3-1.0); Blood Urea Nitrogen 15 mg/dL (8-23); Carbon Dioxide 29 mEq/L (23-29); Chloride 104 mEq/L (98-107); Globulin 2.8 g/dL (2.4-3.5); Glucose 101 mg/dL (70-105); Osmolality,Calculated 285 (280-300); Potassium 4.1 mEq/L (3.5-5.1); Sodium 137 mEq/L (136-145); Total Protein 6.9 g/dL (6.4-8.9); Troponin I < 0.03 ng/mL (< 0.04); eGFR For African Americans > 60 (> 60); eGFR For Non-African Americans > 60 (> 60)
[2019-10-08] MEDS ORDERED: Ondansetron 4 MG/2 ML VIAL IVP PRN (11:19)
[2019-10-08] MEDS ORDERED: Naloxone 0.4 MG/ML INJ IVP PRN (11:19)
[2019-10-08] MEDS: Azithromycin 250 MG TABLET PO SCH (14:27)
[2019-10-08] MEDS: *HR* Heparin 5,000 UNIT/ML VIAL SQ SCH ×2 (14:28→20:18)
[2019-10-08] MEDS: 0.9 % Sodium Chloride 1,000 ML IVC SCH (14:29)
[2019-10-08] MEDS: Ipratropium/Albuterol Neb 3 ML IH SCH ×2 (15:19→21:45)
[2019-10-08] MEDS: Furosemide 40 MG TABLET PO SCH (17:08)
[2019-10-08] MEDS: MethylPREDNISolone 40 MG/ML VIAL IVP SCH (17:08)
[2019-10-08] MEDS: Budesonide/Formoterol 160/4.5 1 PUFF INH IH SCH (21:46)
[2019-10-09] MEDS: MethylPREDNISolone 40 MG/ML VIAL IVP SCH ×4 (00:12→23:17)
[2019-10-09] MEDS: Ipratropium/Albuterol Neb 3 ML IH SCH ×4 (03:08→22:02)
[2019-10-09] MEDS: *HR* Heparin 5,000 UNIT/ML VIAL SQ SCH ×3 (04:33→23:17)
[2019-10-09 05:42] LABS: Hematocrit 39.3 % (35.3-44.9); Immature Granulocytes % 0.4 % (0-4); Lymphocytes # 0.4 K/mcL (0.6-4.6); Lymphocytes % 3.9 %; Mean Corpuscular HGB Conc 31.8 g/dL (31.6-35.5); Mean Corpuscular Hemoglobin 30.3 pg (28.0-33.3); Mean Corpuscular Volume 95.2 fL (83.0-100.0); Mean Platelet Volume 9.4 fL (9.4-12.4); Monocytes # 0.1 K/mcL (0.0-1.3); Monocytes % 0.7 %; Platelet Count 233 K/mcL (140-400); Red Blood Count 4.13 M/mcL (3.82-4.97); Red Cell Distribution Width 13.1 % (11.5-14.5)
[2019-10-09 05:45] LABS: Hemoglobin 12.5 g/dL (11.5-15.4); Neutrophils # 10.7 K/mcL (1.6-8.9); White Blood Count 11.3 K/mcL (4.3-11.1)
[2019-10-09] MEDS: Azithromycin 250 MG TABLET PO SCH (09:18)
[2019-10-09] MEDS: Furosemide 20 MG TABLET PO SCH (09:19)
[2019-10-09] MEDS: Furosemide 40 MG TABLET PO SCH ×2 (09:19→16:04)
[2019-10-09] MEDS: Budesonide/Formoterol 160/4.5 1 PUFF INH IH SCH ×2 (09:35→22:02)
[2019-10-09] MEDS: 0.9 % Sodium Chloride 1,000 ML IVC SCH (12:04)
[2019-10-10] MEDS: Ipratropium/Albuterol Neb 3 ML IH SCH ×2 (03:17→10:13)
[2019-10-10] MEDS: *HR* Heparin 5,000 UNIT/ML VIAL SQ SCH (05:15)
[2019-10-10 07:17] LABS: BUN/Creatinine Ratio 40 (6-26); Blood Urea Nitrogen 27 mg/dL (8-23); Calcium 8.5 mg/dL (8.6-10.3); Carbon Dioxide 29 mEq/L (23-29); Chloride 101 mEq/L (98-107); Glucose 168 mg/dL (70-105); Osmolality,Calculated 293 (280-300); Sodium 137 mEq/L (136-145); eGFR For African Americans > 60 (> 60); eGFR For Non-African Americans > 60 (> 60)
[2019-10-10 07:49] VITALS: BP 129/76
[2019-10-10] MEDS: Azithromycin 250 MG TABLET PO SCH (08:20)
[2019-10-10] MEDS: Furosemide 40 MG TABLET PO SCH (08:21)
[2019-10-10] MEDS: MethylPREDNISolone 40 MG/ML VIAL IVP SCH (08:21)
[2019-10-10] MEDS: Furosemide 20 MG TABLET PO SCH (08:54)
[2019-10-10] MEDS ORDERED: Ipratropium/Albuterol Neb 3 ML IH PRN (10:12)
[2019-10-10] MEDS: Budesonide/Formoterol 160/4.5 1 PUFF INH IH SCH (10:41)
== END 2019-10-10 12:28 | disposition home or self-care (01) ==
LOC: EMEROOARM 09:32 → 3BNU 09:32
PROVIDERS: ADMIT Family Medicine; ATTEND Family Medicine

== ENCOUNTER 2019-12-20 18:08 | Observation (INO) ==
[2019-12-20] MEDS ORDERED: Isovue-370 500 ML BOTTLE IVP ONE (18:34)
[2019-12-20 19:14] LABS: Basophils % 0.3 %; Eosinophils # 0.1 K/mcL (0.0-0.6); Eosinophils % 0.9 %; Hematocrit 43.2 % (35.3-44.9); Hemoglobin 13.7 g/dL (11.5-15.4); Immature Granulocytes % 0.5 % (0-4); Lymphocytes # 0.9 K/mcL (0.6-4.6); Lymphocytes % 8.1 %; Mean Corpuscular HGB Conc 31.7 g/dL (31.6-35.5); Mean Corpuscular Hemoglobin 30.5 pg (28.0-33.3); Mean Corpuscular Volume 96.2 fL (83.0-100.0); Mean Platelet Volume 9.1 fL (9.4-12.4); Monocytes # 0.6 K/mcL (0.0-1.3); Monocytes % 5.8 %; Neutrophils # 9.1 K/mcL (1.6-8.9); Platelet Count 282 K/mcL (140-400); Red Blood Count 4.49 M/mcL (3.82-4.97); Red Cell Distribution Width 13.3 % (11.5-14.5); Segmented Neutrophils % 84.4 %; White Blood Count 10.8 K/mcL (4.3-11.1)
[2019-12-20 19:17] LABS: INR 0.9; Prothrombin Time 10.5 Seconds (9.4-12.1)
[2019-12-20] MEDS ORDERED: *HR* FentaNYL (PF) 100 MCG/2 ML VIAL IVP ONE ×2 (19:18→21:29)
[2019-12-20 19:37] LABS: Alanine Aminotransferase 13 Units/L (7-52); Albumin/Globulin Ratio 1.5 (1.1-2.2); Alkaline Phosphatase 86 Units/L (34-104); Amylase 31 Units/L (29-103); Aspartate Amino Transferase 16 Units/L (13-39); BUN/Creatinine Ratio 20 (6-26); Bilirubin,Indirect 0.3 mg/dL (0.0-1.0); Bilirubin,Total 0.3 mg/dL (0.3-1.0); Blood Urea Nitrogen 16 mg/dL (8-23); Calcium 8.7 mg/dL (8.6-10.3); Carbon Dioxide 31 mEq/L (23-29); Chloride 104 mEq/L (98-107); Globulin 2.6 g/dL (2.4-3.5); Glucose 117 mg/dL (70-105); Lipase 10 Units/L (11-82); Osmolality,Calculated 296 (280-300); Potassium 4.1 mEq/L (3.5-5.1); Sodium 142 mEq/L (136-145); Total Protein 6.6 g/dL (6.4-8.9); Troponin I < 0.03 ng/mL (< 0.04); eGFR For African Americans > 60 (> 60); eGFR For Non-African Americans > 60 (> 60)
[2019-12-20 20:13] LABS: Bilirubin,Urine Negative (Negative); Blood,Urine Large (Negative); Clarity,Urine Cloudy (Clear); Color,Urine Yellow (Yellow); Glucose,Urine (UA) Normal (Normal); Ketones,Urine Negative (Negative); Leukocyte Esterase,Urine Negative (Negative); Nitrite,Urine Negative (Negative); Protein,Urine Negative (Neg-Trace); Specific Gravity,Urine > 1.030 (1.010-1.025); Urobilinogen,Urine Normal (Normal)
[2019-12-20 20:20] LABS: Bacteria,Urine None Seen per hpf (None-Few); Hyaline Casts,Urine None Seen per lpf (None-Few); RBC,Urine TNTC per hpf (0-3); Squamous Epithelial Cell,Urine Many per lpf (None-Few)
[2019-12-20] MEDS ORDERED: *HR* Promethazine 25 MG/ML VIAL IVP PRN (23:08)
[2019-12-20] MEDS ORDERED: Naloxone 0.4 MG/ML INJ IVP PRN (23:08)
[2019-12-20] MEDS ORDERED: Acetaminophen 325 MG TABLET PO PRN (23:17)
[2019-12-20] MEDS ORDERED: Ipratropium/Albuterol Neb 3 ML IH PRN (23:20)
[2019-12-21] MEDS ORDERED: Nicotine 21 MG PATCH.TD24 TD SCH (00:30)
[2019-12-21] MEDS: 0.9 % Sodium Chloride 1,000 ML IVC SCH ×3 (04:29→17:42)
[2019-12-21] MEDS ORDERED: levoFLOXacin 500 MG/100 ML 500 MG/100 ML BAG IVPB ONE (04:37)
[2019-12-21] MEDS: Ipratropium/Albuterol Neb 3 ML IH SCH ×4 (05:28→22:29)
[2019-12-21] MEDS ORDERED: *HR* Heparin 5,000 UNIT/ML VIAL SQ SCH (06:00)
[2019-12-21 06:55] LABS: Basophils % 0.2 %; Eosinophils # 0.1 K/mcL (0.0-0.6); Eosinophils % 1.6 %; Hematocrit 39.1 % (35.3-44.9); Hemoglobin 12.3 g/dL (11.5-15.4); Immature Granulocytes % 0.5 % (0-4); Lymphocytes # 1.1 K/mcL (0.6-4.6); Lymphocytes % 13.4 %; Mean Corpuscular HGB Conc 31.5 g/dL (31.6-35.5); Mean Corpuscular Hemoglobin 30.4 pg (28.0-33.3); Mean Corpuscular Volume 96.8 fL (83.0-100.0); Monocytes # 0.7 K/mcL (0.0-1.3); Neutrophils # 6.3 K/mcL (1.6-8.9); Platelet Count 233 K/mcL (140-400); Red Blood Count 4.04 M/mcL (3.82-4.97); Red Cell Distribution Width 13.4 % (11.5-14.5); Segmented Neutrophils % 76.3 %; White Blood Count 8.2 K/mcL (4.3-11.1)
[2019-12-21 06:58] LABS: Prothrombin Time 11.3 Seconds (9.4-12.1)
[2019-12-21 07:19] LABS: BUN/Creatinine Ratio 14 (6-26); Blood Urea Nitrogen 13 mg/dL (8-23); Carbon Dioxide 28 mEq/L (23-29); Chloride 105 mEq/L (98-107); Chol/HDL Ratio 2.9 (0-4.9); Cholesterol 165 mg/dL (< 200); Glucose 125 mg/dL (70-105); HDL Cholesterol 56 mg/dL (40-59); LDL Cholesterol,Calculated 83 mg/dL (0-99); Magnesium 2.2 mg/dL (1.6-2.6); Osmolality,Calculated 292 (280-300); Potassium 3.8 mEq/L (3.5-5.1); Sodium 140 mEq/L (136-145); Triglycerides 132 mg/dL (< 150); Troponin I < 0.03 ng/mL (< 0.04); eGFR For African Americans > 60 (> 60); eGFR For Non-African Americans > 60 (> 60)
[2019-12-21] MEDS ORDERED: Furosemide 20 MG TABLET PO SCH (09:00)
[2019-12-21] MEDS ORDERED: Famotidine 20 MG/2 ML VIAL IVP ONE (09:36)
[2019-12-21] MEDS ORDERED: Pregabalin 75 MG CAPSULE PO ONE (09:36)
[2019-12-21] MEDS ORDERED: Acetaminophen IV 1,000 MG/100 ML INFUS..BTL IVPB ONE (09:36)
[2019-12-21] MEDS ORDERED: *HR* Labetalol 20 MG/4 ML SYRINGE IVP PRN (09:36)
[2019-12-21] MEDS ORDERED: *HR* HYDROmorphone (PF) 1 MG/ML SYRINGE IVP PRN (09:36)
[2019-12-21] MEDS ORDERED: *HR* Promethazine 25 MG/ML VIAL IVP PRN ×2 (09:36→14:23)
[2019-12-21] MEDS ORDERED: *HR* OxyCODONE Immed Rel 5 MG TABLET PO PRN (09:36)
[2019-12-21] MEDS ORDERED: *HR* HYDROmorphone 2 MG TABLET PO PRN (09:36)
[2019-12-21] MEDS ORDERED: Budesonide/Formoterol 160/4.5 1 PUFF INH IH SCH (10:00)
[2019-12-21] MEDS ORDERED: *HR* Midazolam HCl 2 MG/2 ML VIAL ONE (10:20)
[2019-12-21] MEDS ORDERED: Ondansetron 4 MG/2 ML VIAL ONE (10:20)
[2019-12-21] MEDS ORDERED: Lidocaine -MPF 2% 2 ML VIAL ONE (10:20)
[2019-12-21] MEDS ORDERED: *HR* FentaNYL (PF) 100 MCG/2 ML VIAL ONE (10:20)
[2019-12-21] MEDS ORDERED: *HR* Propofol 200 MG/20 ML VIAL IVP ONE (10:20)
[2019-12-21] MEDS ORDERED: Dexamethasone 4 MG/ML VIAL ONE (10:20)
[2019-12-21] MEDS ORDERED: *HR* PHENYLEPHRINE 1,000 MCG/10 ML SYRINGE IVP ONE (11:46)
[2019-12-21] MEDS ORDERED: Ipratropium/Albuterol Neb 3 ML IH PRN (14:23)
[2019-12-21] MEDS ORDERED: Naloxone 0.4 MG/ML INJ IVP PRN (14:23)
[2019-12-21] MEDS ORDERED: Acetaminophen 325 MG TABLET PO PRN (14:23)
[2019-12-21] MEDS: *HR* Heparin 5,000 UNIT/ML VIAL SQ SCH (17:43)
[2019-12-21] MEDS: Budesonide/Formoterol 160/4.5 1 PUFF INH IH SCH (22:34)
[2019-12-22] MEDS ORDERED: 0.9 % Sodium Chloride 1,000 ML ONE (03:43)
[2019-12-22] MEDS: 0.9 % Sodium Chloride 1,000 ML IVC SCH (03:48)
[2019-12-22] MEDS: Ipratropium/Albuterol Neb 3 ML IH SCH ×2 (04:14→10:14)
[2019-12-22] MEDS: *HR* Heparin 5,000 UNIT/ML VIAL SQ SCH (06:04)
[2019-12-22 06:20] VITALS: BP 104/55
[2019-12-22] MEDS ORDERED: Furosemide 20 MG TABLET PO SCH (09:00)
[2019-12-22] MEDS ORDERED: Nicotine 21 MG PATCH.TD24 TD SCH (09:00)
[2019-12-22] MEDS: Budesonide/Formoterol 160/4.5 1 PUFF INH IH SCH (10:14)
== END 2019-12-22 11:10 | disposition home or self-care (01) ==
LOC: 3ANU 18:08 → EMEROOARM 18:08 → SUATTDRO 21:39 → 3ANU 22:52
PROVIDERS: ADMIT Internal Medicine; ATTEND Internal Medicine